=== PATIENT | male | born 2000 | race Caucasian/White ===

== ENCOUNTER 2021-10-12 12:25 | Emergency (ER) | payer MEDICARE, MEDICAID, SELFPAY ==
[2021-10-12 12:34] VITALS: BP 135/76; PULSE 89; RESP 20; TEMP 36.4; O2SAT 98
--- NOTE | 2021-10-12 12:54 | ED.EAR ---
HPI - Ear Problem General Chief complaint: Ear Stated complaint: ear pain Time Seen by Provider: 10/12/21 12:45 Source: patient, family and RN notes reviewed Mode of arrival: ambulatory Limitations: no limitations History of Present Illness HPI Narrative: Grandmother presents with patient today complaining of right ear pain x1 week with decreased hearing. Denies drainage, cough, congestion or rhinorrhea, sore throat. He currently rates his pain 10/10 and has been taking Tylenol with mild relief. No recent antibiotic use. MD Complaint: ear pain Related Data Home Medications Medication Instructions Recorded Confirmed buspirone 15 mg PO TID 11/02/19 10/12/21 carbamazepine 300 mg PO TID 11/02/19 10/12/21 clonazepam 0.5 mg PO HS 11/02/19 10/12/21 divalproex 250 mg PO Q12H 11/02/19 10/12/21 omeprazole 20 mg PO DAILY 11/02/19 10/12/21 quetiapine 400 mg PO BID 11/02/19 10/12/21 trazodone 200 mg PO HS 11/02/19 10/12/21 Allergies Allergy/AdvReac Type Severity Reaction Status Date / Time No Known Allergies Allergy Verified 10/12/21 12:52 Review of Systems Review of Systems: CONSTITUTIONAL: Denies body aches, fever, chills, or sweats. EYES: Denies visual changes, redness, or discharge. ENT: Denies rhinorrhea, congestion, sore throat. + Right ear pain with decreased hearing CARDIOVASCULAR: Denies chest pain, palpitations, or edema. RESPIRATORY: Denies cough or dyspnea. GASTROINTESTINAL: Denies abdominal pain, nausea, vomiting, or diarrhea. GENITOURINARY: Denies dysuria or hematuria. SKIN: Denies rash, itching, or wounds. MUSCULOSKELETAL: Denies back pain, joint pain, or myalgia. NEUROLOGIC: Denies headache, numbness, tingling, or weakness. PSYCH: Denies depression or anxiety. PMFSH Comments At time of signature, I have reviewed and agree with nursing past medical, surgical, social and family history unless otherwise noted. Please see nursing chart for further information. There is no relevant family history pertinent to the presenting complaint Exam Narrative: GENERAL: Well-appearing, well-nourished, and in no acute distress. HEAD: Normocephalic, atraumatic. EYES: EOMI. No redness or drainage. Conjunctivae normal. ENT: Mucous membranes pink and moist. Nares clear. No rhinorrhea. Left TM normal. Right TM erythematous and bulging with purulent material. Throat normal. Uvula midline. NECK: Normal AROM. Supple. No lymphadenopathy. CHEST: No respiratory distress. EXTREMITIES: Normal range of motion. No edema. SKIN: Warm, dry, no rash. Capillary refill normal. Normal skin turgor. NEURO: No focal deficits. Alert and oriented x3. Gait steady. PSYCH: Normal affect. No signs of depression or anxiety. Course Vital Signs Vital signs: Vital Signs Temperature 97.6 F 10/12/21 12:34 Pulse Rate 89 10/12/21 12:34 Respiratory Rate 20 10/12/21 12:34 Blood Pressure 135/76 10/12/21 12:34 Pulse Oximetry 98 10/12/21 12:34 Temperature 97.6 F 10/12/21 12:34 Pulse Rate 89 10/12/21 12:34 Respiratory Rate 20 10/12/21 12:34 Blood Pressure 135/76 10/12/21 12:34 Pulse Oximetry 98 10/12/21 12:34 Reviewed. Pt has been instructed to follow up with his PCP regarding his elevated blood pressure today. Medical Decision Making Differential Diagnosis Differential Diagnosis: Otitis media, otitis externa, ruptured TM, serous otitis, eustachian tube dysfunction, cerumen impaction Vital Signs Vital Signs: Vital Signs Temperature 97.6 F 10/12/21 12:34 Pulse Rate 89 10/12/21 12:34 Respiratory Rate 20 10/12/21 12:34 Blood Pressure 135/76 10/12/21 12:34 Pulse Oximetry 98 10/12/21 12:34 Temperature 97.6 F 10/12/21 12:34 Pulse Rate 89 10/12/21 12:34 Respiratory Rate 20 10/12/21 12:34 Blood Pressure 135/76 10/12/21 12:34 Pulse Oximetry 98 10/12/21 12:34 Critical Care Time Critical Care Time Critical Care Time: No Discharge Plan Discharge Clinical Impression:
== END 2021-10-12 13:05 | disposition home or self-care (01) ==
PROVIDERS: Emergency Provider Nurse Practitioner; PCP Internal Medicine
DX: H66.001 Acute suppurative otitis media without spontaneous rupture of ear drum, right ear (principal); G40.909 Epilepsy, unspecified, not intractable, without status epilepticus; K21.9 Gastro-esophageal reflux disease without esophagitis; E11.9 Type 2 diabetes mellitus without complications; F41.9 Anxiety disorder, unspecified; F31.9 Bipolar disorder, unspecified
CPT/HCPCS: 99213; G0463

== ENCOUNTER 2023-03-29 15:00 | Emergency (ER) | payer MEDICARE, MEDICAID, SELFPAY ==
--- NOTE | 2023-03-29 15:02 | ED.URI ---
HPI - URI/Sore Throat General Chief Complaint: Upper Respiratory Infection Stated Complaint: Cold Symptoms Time Seen by Provider: 03/29/23 15:02 Source: patient and RN notes reviewed History of Present Illness HPI Narrative: Patient is a 22-year-old male who presents to urgent care with complaints of postnasal drainage, cough and cold-like symptoms. Denies any fever, nausea or vomiting. Patient has been taking DayQuil and NyQuil. No other acute complaints. No acute distress noted. Patient and mother aware of the plan of care. Some parts of this dictation were generated by voice recognition software and may contain typographical and/or grammatical inaccuracies. Related Data Home Medications Medication Instructions Recorded Confirmed buspirone 15 mg tablet 15 mg PO TID 11/02/19 03/29/23 clonazepam 0.5 mg tablet 0.5 mg PO HS 11/02/19 03/29/23 divalproex 250 mg tablet,delayed 500 mg PO Q12H 11/02/19 03/29/23 release omeprazole 20 mg capsule,delayed 20 mg PO DAILY 11/02/19 03/29/23 release trazodone 100 mg tablet 200 mg PO HS 11/02/19 03/29/23 aripiprazole 30 mg tablet 30 mg PO DAILY 03/29/23 03/29/23 atorvastatin 40 mg tablet 40 mg PO DAILY 03/29/23 03/29/23 clonidine HCl 0.1 mg tablet 1 mg PO TID 03/29/23 03/29/23 empagliflozin 10 mg tablet 10 mg PO DAILY 03/29/23 03/29/23 (Jardiance) gabapentin 300 mg capsule 300 mg PO TID 03/29/23 03/29/23 hydroxyzine HCl 25 mg tablet 25 mg PO TID 03/29/23 03/29/23 levothyroxine 25 mcg tablet 25 mcg PO DAILY 03/29/23 03/29/23 metformin 1,000 mg tablet 1,000 mg PO BID 03/29/23 03/29/23 Allergies Allergy/AdvReac Type Severity Reaction Status Date / Time No Known Allergies Allergy Verified 03/29/23 15:10 Review of Systems Review of Systems: CONSTITUTIONAL: Denies fever, chills, or sweats. EYES: Denies visual changes, redness, or discharge. ENT: Reports of drainage, rhinorrhea, congestion CARDIOVASCULAR: Denies chest pain, palpitations, or edema. RESPIRATORY: Reports of productive cough GASTROINTESTINAL: Denies abdominal pain, nausea, vomiting, or diarrhea. GENITOURINARY: Denies dysuria or hematuria. SKIN: Denies rash or itching. MUSCULOSKELETAL: Denies back pain, joint pain, or myalgia. NEUROLOGIC: Denies headache, numbness, or weakness. All other systems reviewed are negative, except as documented in HPI. PMFSH Comments At the time of my signature, I reviewed and agree with the nursing past medical, surgical, social, and family history. There is no relevant family history pertinent to the patient complaint. Exam Narrative: GENERAL: This is a well-nourished, well-developed patient, in no apparent distress. HEAD: normocephalic, atraumatic. EYES: PERRL. Sclera clear/white. Vision is grossly intact. EARS: External ears normal, auditory canals clear and without drainage, mild bilateral effusions. TMs normal without perforation. Hearing grossly intact. NOSE: External nose normal with no obvious nasal discharge, nares without redness, no rhinorrhea. THROAT: Mucous membranes moist, posterior pharynx clear. Moderate postnasal drainage NECK: Neck supple, non-tender without lymphadenopathy RESPIRATORY: Clear to auscultation. Breath sounds equal bilaterally. No wheezes, rales, or rhonchi. SKIN: warm, intact with no suspicious lesions or rash, good texture and turgor. NEURO: awake, alert, and oriented to person, place and time. There were no obvious focal neurologic abnormalities. EXTREMITIES: No clubbing, cyanosis, or edema. Course Course Level of Care: Express Care Visit Vital Signs Vital signs: Vital Signs Temperature 98.6 F 03/29/23 15:05 Pulse Rate 86 03/29/23 15:05 Respiratory Rate 16 03/29/23 15:05 Blood Pressure 147/90 H 03/29/23 15:05 Pulse Oximetry 98 03/29/23 15:05 Oxygen Delivery Room Air 03/29/23 15:05 Temperature 98.6 F 03/29/23 15:05 Pulse Rate 86 03/29/23 15:05 Respiratory Rate 16 03/29/23 15:05 Blood Pressure
[2023-03-29 15:05] VITALS: BP 147/90; PULSE 86; RESP 16; TEMP 37; O2SAT 98
== END 2023-03-29 15:42 | disposition home or self-care (01) ==
PROVIDERS: Emergency Provider Nurse Practitioner Family; PCP Internal Medicine
DX: J00 Acute nasopharyngitis [common cold] (principal); Z79.84 Long term (current) use of oral hypoglycemic drugs
CPT/HCPCS: 99211; G0463

== ENCOUNTER 2023-07-22 17:21 | Emergency (ER) | payer MEDICARE, MEDICAID, SELFPAY ==
[2023-07-22 17:26] VITALS: BP 131/79; PULSE 68; RESP 20; TEMP 36.8; O2SAT 94
--- NOTE | 2023-07-22 17:48 | ED.EAR ---
HPI - Ear Problem General Chief complaint: Ear Stated complaint: Left Ear Pain Source: patient and RN notes reviewed History of Present Illness HPI Narrative: 23 yo M presents to urgent care with complaints of left ear pain x 2 days. Pt states it has been intermittently popping for the last couple days too. Pt denies any fevers, chills, congestion, or sore throat. Related Data Home Medications Medication Instructions Recorded Confirmed buspirone 15 mg tablet 15 mg PO TID 11/02/19 07/22/23 clonazepam 0.5 mg tablet 0.5 mg PO HS 11/02/19 07/22/23 divalproex 250 mg tablet,delayed 500 mg PO Q12H 11/02/19 07/22/23 release omeprazole 20 mg capsule,delayed 20 mg PO DAILY 11/02/19 07/22/23 release trazodone 100 mg tablet 200 mg PO HS 11/02/19 07/22/23 aripiprazole 30 mg tablet 30 mg PO DAILY 03/29/23 07/22/23 atorvastatin 40 mg tablet 40 mg PO DAILY 03/29/23 07/22/23 clonidine HCl 0.1 mg tablet 1 mg PO TID 03/29/23 07/22/23 empagliflozin 10 mg tablet 10 mg PO DAILY 03/29/23 07/22/23 (Jardiance) gabapentin 300 mg capsule 300 mg PO TID 03/29/23 07/22/23 hydroxyzine HCl 25 mg tablet 25 mg PO TID 03/29/23 07/22/23 levothyroxine 25 mcg tablet 25 mcg PO DAILY 03/29/23 07/22/23 metformin 1,000 mg tablet 1,000 mg PO BID 03/29/23 07/22/23 Allergies Allergy/AdvReac Type Severity Reaction Status Date / Time No Known Allergies Allergy Verified 03/29/23 15:10 Review of Systems Review of Systems: CONSTITUTIONAL: Denies fever, chills, or sweats. EYES: Denies visual changes, redness, or discharge. ENT: Left-sided ear pain CARDIOVASCULAR: Denies chest pain, palpitations, or edema. RESPIRATORY: Denies cough or dyspnea. GASTROINTESTINAL: Denies abdominal pain, nausea, vomiting, or diarrhea. GENITOURINARY: Denies dysuria or hematuria. SKIN: Denies rash or itching. MUSCULOSKELETAL: Denies back pain, joint pain, or myalgia. NEUROLOGIC: Denies headache, numbness, or weakness. Pertinent positives per HPI. PMFSH Comments At the time of my signature, I reviewed and agree with the nursing past medical, surgical, social, and family history. There is no relevant family history pertinent to the patient complaint. Exam Narrative: GENERAL: This is a well-nourished, well-developed patient, in no apparent distress. HEAD: normocephalic, atraumatic. EYES: Sclera clear/white. Vision is grossly intact. EARS: External ears normal, auditory canals clear and without drainage. Hearing grossly intact. Left TM erythremic and bulging. NOSE: External nose normal with no obvious nasal discharge, nares without redness, no rhinorrhea. THROAT: Mucous membranes moist, posterior pharynx clear. NECK: Neck supple, non-tender without lymphadenopathy, masses or thyromegaly. CARDIOVASCULAR: Regular rate and rhythm without murmurs, gallops, or rubs. RESPIRATORY: Clear to auscultation. Breath sounds equal bilaterally. No wheezes, rales, or rhonchi. SKIN: warm, intact with no suspicious lesions or rash, good texture and turgor. NEURO: awake, alert, and oriented to person, place and time. There were no obvious focal neurologic abnormalities. Course Course Level of Care: Express Care Visit Vital Signs Vital signs: Vital Signs Temperature 98.2 F 07/22/23 17:26 Pulse Rate 68 07/22/23 17:26 Respiratory Rate 20 07/22/23 17:26 Blood Pressure 131/79 07/22/23 17:26 Pulse Oximetry 94 07/22/23 17:26 Oxygen Delivery Room Air 07/22/23 17:26 Temperature 98.2 F 07/22/23 17:26 Pulse Rate 68 07/22/23 17:26 Respiratory Rate 20 07/22/23 17:26 Blood Pressure 131/79 07/22/23 17:26 Pulse Oximetry 94 07/22/23 17:26 Oxygen Delivery Room Air 07/22/23 17:26 reviewed Medical Decision Making MDM Narrative Medical decision making narrative: Take antibiotics as directed. May given ibuprofen and/or Tylenol as needed for pain and/or fever. Follow up with primary care provider in 7-10 days to have ear rechecked. Differentia
== END 2023-07-22 17:57 | disposition home or self-care (01) ==
PROVIDERS: Emergency Provider Nurse Practitioner Family; PCP Internal Medicine
DX: H66.92 Otitis media, unspecified, left ear (principal); G40.909 Epilepsy, unspecified, not intractable, without status epilepticus; I10 Essential (primary) hypertension; K21.9 Gastro-esophageal reflux disease without esophagitis; E11.9 Type 2 diabetes mellitus without complications; E03.9 Hypothyroidism, unspecified; F41.9 Anxiety disorder, unspecified; F32.A Depression, unspecified
CPT/HCPCS: 99213; G0463

== ENCOUNTER 2024-07-21 16:41 | Emergency (ER) | payer MEDICARE, MEDICAID, SELFPAY ==
[2024-07-21 16:50] VITALS: BP 147/95; PULSE 103; RESP 20; TEMP 36.8; O2SAT 99
--- NOTE | 2024-07-21 17:21 | ED.URI ---
HPI - URI/Sore Throat General Chief Complaint: Upper Respiratory Infection Stated Complaint: Sore Throat/Cough History of Present Illness HPI Narrative: patient is a 24-year-old male, presents to [facility] with 24 hour history of URI symptoms, including scratchy itchy throat, nasal congestion and a slight cough. He denies associated fevers. He has no known sick contacts or COVID-19 exposures. He is not taking any [id number] medications. He denies any additional associated symptoms or modifying factors. Related Data Home Medications Medication Instructions Recorded Confirmed divalproex 250 mg tablet,delayed 500 mg PO Q12H 11/02/19 07/21/24 release omeprazole 20 mg capsule,delayed 20 mg PO DAILY 11/02/19 07/21/24 release trazodone 100 mg tablet 200 mg PO HS 11/02/19 07/21/24 aripiprazole 30 mg tablet 30 mg PO DAILY 03/29/23 07/21/24 atorvastatin 40 mg tablet 40 mg PO DAILY 03/29/23 07/21/24 clonidine HCl 0.1 mg tablet 1 mg PO TID 03/29/23 07/21/24 empagliflozin 10 mg tablet 10 mg PO DAILY 03/29/23 07/21/24 (Jardiance) gabapentin 300 mg capsule 300 mg PO TID 03/29/23 07/21/24 hydroxyzine HCl 25 mg tablet 25 mg PO TID 03/29/23 07/21/24 levothyroxine 25 mcg tablet 25 mcg PO DAILY 03/29/23 07/21/24 metformin 1,000 mg tablet 1,000 mg PO BID 03/29/23 07/21/24 buspirone 10 mg tablet 20 mg PO TID 07/21/24 07/21/24 Allergies Allergy/AdvReac Type Severity Reaction Status Date / Time No Known Allergies Allergy Verified 07/21/24 17:01 Review of Systems ENT: Comments: Refer HPI Respiratory: Comments: refer to HPI Exam Const: General: healthy appearing and no acute distress Nutritional Appearance: well nourished Orientation/consciousness: patient oriented x3 HENMT: Head: normal to inspection Ears: external ears normal and TM's normal bilaterally Face/Nose/Sinus: Normal external nose present and Normal nares present Mouth: Yes Normal oral and palatal mucosa present (. Mucosa is mildly injected, otherwise unremarkable) and Yes lip normal Throat: posterior oropharynx normal and uvula midline Eyes: Conjunctivae: conjunctivae normal Pupils: Equal, round and reactive pupils present EOM: EOMs intact bilaterally Neck: Neck: normal visual inspection, no lymphadenopathy and no meningeal signs Resp: Effort & Inspection: normal respiratory effort Auscultation: clear to auscultation bilaterally Cardio: Rate: regular rate Rhythm: regular rhythm Back/Spine/Pelvis: Back: no CVA tenderness Skin: General skin exam: normal color Rashes: no rashes Wounds: no wounds Neuro: General: patient oriented x3, moves all extremities, no meningeal signs, no focal motor deficits and CN's II-XI intact bilaterally Cranial nerves: Yes Nystagmus not present Speech: normal speech Gait exam (Neuro): Normal gait present Extrem: General: normal to inspection, no clubbing, cyanosis or edema and no pedal edema Psych: Mental Status: mental status grossly normal Course Course Emergency Course: strep, COVID-19 and influenza are negative. Patient's examination and symptoms are consistent with a mild viral URI. Will treat with Flonase, Zyrtec and cough medication. Follow up PCP in 3-5 days if symptoms are not Improving. Level of Care: Express Care Visit ([id number]) Vital Signs Vital signs: Vital Signs Temperature 36.8 C 07/21/24 16:50 Pulse Rate 103 H 07/21/24 16:50 Respiratory Rate 20 07/21/24 16:50 Blood Pressure 147/95 H 07/21/24 16:50 Pulse Oximetry 99 07/21/24 16:50 Oxygen Delivery Room Air 07/21/24 16:50 Temperature 36.8 C 07/21/24 16:50 Pulse Rate 103 H 07/21/24 16:50 Respiratory Rate 20 07/21/24 16:50 Blood Pressure 147/95 H 07/21/24 16:50 Pulse Oximetry 99 07/21/24 16:50 Oxygen Delivery Room Air 07/21/24 16:50 MDM - URI/Sore Throat MDM Narrative Medical decision making narrative: promethazine DM, Flonase and Zyrtec Differential Diagnosis Differentia
[2024-07-22 11:35] LABS: EDINFLUASCREEN Negative; EDINFLUBSCREEN Negative; EDSTREPNEGPOS1 Negative
== END 2024-07-21 17:30 | disposition home or self-care (01) ==
PROVIDERS: Emergency Provider Nurse Practitioner Family; PCP Internal Medicine
DX: J06.9 Acute upper respiratory infection, unspecified (principal); Z20.822 Contact with and (suspected) exposure to COVID-19
CPT/HCPCS: 87081; 87426; 87804; 87880; 99213; G0463

== ENCOUNTER 2024-10-31 09:24 | Emergency (ER) | payer MEDICARE, MEDICAID, SELFPAY ==
--- NOTE | ~2024-10-31 | XR_ITS ---
EXAMINATION: XR chest 2V DATE: 10/31/2024 10:10 INDICATION: Cough. TECHNIQUE: Frontal and lateral views of the chest were obtained. COMPARISON: Chest 2 views 11/02/2019 FINDINGS: There is no pneumonia, pleural effusion, or pneumothorax. The heart size is normal. IMPRESSION: 1. No acute cardiopulmonary disease. Reviewed, dictated and finalized at location A. [facility]
[2024-10-31 09:29] VITALS: BP 125/73; PULSE 90; RESP 20; TEMP 37.6; O2SAT 98
[2024-10-31 10:03] LABS: EDCOVIDSCREEN Negative (Negative); EDINFLUASCREEN Negative (Negative); EDINFLUBSCREEN Negative (Negative); EDSTREPNEGPOS1 Negative (Negative)
--- NOTE | 2024-10-31 10:08 | ED_ITS ---
HPI - General Adult General Chief complaint: Upper Respiratory Infection Stated complaint: Cough/Chills Source: patient Mode of arrival: ambulatory Limitations: no limitations History of Present Illness HPI narrative: Pt presents for evaluation of sick symptoms for the last week. Symptoms include sinus congestion, clear rhinorrhea, productive brown sputum, and sore throat. Mother states he has also had a fever. No chills, nausea, vomiting, diarrhea, SOB. His mother recently had a viral illness. He tried nyquil and dayquil. His symptoms persist. He does not smoke. Related Data Home Medications Medication Instructions Recorded Confirmed divalproex 250 mg tablet,delayed 500 mg PO Q12H 11/02/19 10/31/24 release omeprazole 20 mg capsule,delayed 20 mg PO DAILY 11/02/19 10/31/24 release trazodone 100 mg tablet 200 mg PO HS 11/02/19 10/31/24 aripiprazole 30 mg tablet 30 mg PO DAILY 03/29/23 10/31/24 atorvastatin 40 mg tablet 40 mg PO DAILY 03/29/23 10/31/24 clonidine HCl 0.1 mg tablet 1 mg PO TID 03/29/23 10/31/24 empagliflozin 10 mg tablet 10 mg PO DAILY 03/29/23 10/31/24 (Jardiance) gabapentin 300 mg capsule 300 mg PO TID 03/29/23 10/31/24 hydroxyzine HCl 25 mg tablet 25 mg PO TID PRN Anxiety 03/29/23 10/31/24 levothyroxine 25 mcg tablet 25 mcg PO DAILY 03/29/23 10/31/24 metformin 1,000 mg tablet 1,000 mg PO BID 03/29/23 10/31/24 buspirone 10 mg tablet 20 mg PO TID 07/21/24 10/31/24 Allergies Allergy/AdvReac Type Severity Reaction Status Date / Time No Known Allergies Allergy Verified 10/31/24 09:59 Review of Systems Review of Systems: CONSTITUTIONAL: Reports fever. Denies chills or sweats. EYES: Denies visual changes, redness, or discharge. ENT: Reports sinus congestion, clear rhinorrhea and sore throat. Denies otalgia CARDIOVASCULAR: Denies chest pain, palpitations, or edema. RESPIRATORY: Reports productive cough of brown sputum. Denies SOB GASTROINTESTINAL: Denies abdominal pain, nausea, vomiting, or diarrhea. GENITOURINARY: Denies dysuria or hematuria. SKIN: Denies rash or itching. MUSCULOSKELETAL: Denies back pain, joint pain, or myalgia. NEUROLOGIC: Denies headache, numbness, dizziness, or weakness. PSYCHIATRIC: Denies anxiety or depression. [facility] Past Medical History Medical History Anxiety Depression Diabetes Surgical History Surgical History No pertinent past surgical history Family History Family History Mother Family history non-contributory Social History Social History Smoking status: Never smoker Substance use: never Living arrangements: with family Gender identity (if verbalized by the patient): Male Spiritual care concerns: No Exam Narrative: GENERAL: Well-appearing, well-nourished, and in no acute distress. HEAD: Normocephalic, atraumatic. EYES: PERRLA and EOMI. ENT: Nares clear, no rhinorrhea or epistaxis. Mucous membranes moist. Oropharynx without tonsillar hypertrophy exudate or other lesions. Left TM is erythematous and bulging NECK: Supple. No adenopathy or masses. No carotid bruits or JVD CHEST: Clear to auscultation. No respiratory distress. No wheezes rales or rhonchi HEART: Regular rate and rhythm. No murmur heard. Normal peripheral pulses. ABDOMEN: Soft, nontender, nondistended, normal active bowel sounds. EXTREMITIES: Normal range of motion. No edema. SKIN: Warm, dry, no rash. NEURO: No focal deficits. Alert and oriented x3. PSYCH: Normal mood and affect. Course Course Emergency Course: This is a 24 yr old male who presented for respiratory symptoms. COVID, in fluenza, strep were negative. Chest x-ray normal. Exam is consistent with acute viral syndrome. Increase hydration. Will dc with tessalon. Follow up with primary provider. Go to the ER for worsening symptoms. Pt and mother in agreement with plan of care. Level of Care: Express Care Visit Vital Signs Vital signs: Vital Signs Temperature 37.6 C 10/31/24 09:29 Pulse Rate 90 10/31/24 09:29 Respiratory Rate 20 10/31/24 09:29 Blood Pressure 125/73 10/31/24 09:29 Pulse Oximetry 98 10/31/24 09:29 Oxygen Delivery Autopap 10/31/24 09:29 Temperature 37.6 C 10/31/24 09:29 Pulse Rate 90 10/31/24 09:29 Respiratory Rate 20 10/31/24 09:29 Blood Pressure 125/73 10/31/24 09:29 Pulse Oximetry 98 10/31/24 09:29 Oxygen Delivery Autopap 10/31/24 09:29 Medical Decision Making Vital Signs Vital Signs: Vital Signs Temperature 37.6 C 10/31/24 09:29 Pulse Rate 90 10/31/24 09:29 Respiratory Rate 20 10/31/24 09:29 Blood Pressure 125/73 10/31/24 09:29 Pulse Oximetry 98 10/31/24 09:29 Oxygen Delivery Autopap 10/31/24 09:29 Temperature 37.6 C 10/31/24 09:29 Pulse Rate 90 10/31/24 09:29 Respiratory Rate 20 10/31/24 09:29 Blood Pressure 125/73 10/31/24 09:29 Pulse Oximetry 98 10/31/24 09:29 Oxygen Delivery Autopap 10/31/24 09:29 Lab Data Labs: Lab Results 10/31/24 Range/Units 10:00 POC Influenza A Ag Negative (Negative) POC Influenza B Ag Negative (Negative) POC SARS CoV-2 Ag Negative (Negative) POC Grp A Strep Screen Negative (Negative) Imaging Data Radiologist's impression: EXAMINATION: XR chest 2V DATE: 10/31/2024 10:10 INDICATION: Cough. TECHNIQUE: Frontal and lateral views of the chest were obtained. COMPARISON: Chest 2 views 11/02/2019 FINDINGS: There is no pneumonia, pleural effusion, or pneumothorax. The heart size is normal. IMPRESSION: 1. No acute cardiopulmonary disease. Discharge Plan Discharge Clinical Impression: Acute viral syndrome Patient Disposition: Home, Self-Care Condition: Stable Instructions: Antibiotic Form, Viral Syndrome (ED) Patient Language: Citizen Of [place] Prescriptions: New benzonatate 200 mg capsule 200 mg PO TID PRN (Reason: cough) Qty: 30 0RF No Action buspirone 10 mg tablet 20 mg PO TID fluticasone propionate [Flonase Allergy Relief] 50 mcg/actuation spray,suspension 2 spray intranasal DAILY Qty: 16 0RF Rx Instructions: administer into each nostril divalproex 250 mg Tablet,Delayed Release (Dr/Ec) 500 mg PO Q12H trazodone 100 mg Tablet 200 mg PO HS omeprazole 20 mg Capsule,Delayed Release(Dr/Ec) 20 mg PO DAILY atorvastatin 40 mg tablet 40 mg PO DAILY clonidine HCl 0.1 mg tablet 1 mg PO TID levothyroxine 25 mcg tablet 25 mcg PO DAILY gabapentin 300 mg capsule 300 mg PO TID hydroxyzine HCl 25 mg tablet 25 mg PO TID PRN (Reason: Anxiety) aripiprazole 30 mg tablet 30 mg PO DAILY Jardiance 10 mg tablet 10 mg PO DAILY metformin 1,000 mg tablet 1,000 mg PO BID Follow-up/Referrals: Navi Nguyen DO [Physician] - Time of Disposition: 10:35
== END 2024-10-31 10:40 | disposition home or self-care (01) ==
PROVIDERS: Emergency Provider Nurse Practitioner
DX: B34.9 Viral infection, unspecified (principal); Z20.822 Contact with and (suspected) exposure to COVID-19; E11.9 Type 2 diabetes mellitus without complications; Z79.84 Long term (current) use of oral hypoglycemic drugs; F41.9 Anxiety disorder, unspecified; F32.A Depression, unspecified
CPT/HCPCS: 71046; 87081; 87426; 87804; 87880; 99213; G0463

== ENCOUNTER 2025-01-05 17:19 | Emergency (ER) | payer MEDICARE, MEDICAID, SELFPAY ==
--- NOTE | ~2025-01-05 | XR_ITS ---
HISTORY: INVERSION INJURY,LATERAL PAIN COMPARISON: None TECHNIQUE: 3 views of the left ankle were performed FINDINGS: No acute fracture or dislocation. Moderate lateral soft tissue swelling. The ankle mortise is preserved. Bone mineralization is age-appropriate. IMPRESSION: Soft tissue swelling without acute fracture. Reviewed, dictated and finalized at location A. ERY TECHNICIAN
--- OUTSIDE RECORDS SUMMARY | 2025-01-05 17:22 | XMS_ITS | Clinical Summary ---
Author Organization [facility] Address [address] [place] [address] Care Team Providers Care Training Professional Name Role Phone Yoselyn Oseguera MD Primary Care Provider Source Comments [facility],non-owned Affiliates and Associated Physician Practices is amultiple site organization consisting of ambulatory clinics and hospital sitesin [place], [place], [place] and [place]. This disclosure is being madepursuant to the Care Everywhere program and may not contain all information available regarding this patient. Last updated 18.[facility] Allergies No known active allergies Medications * Be aware that medications may not be up to date on this document. Alwaysverify current medications with the patient. Medication Sig Dispensed Refills Start Date End Date Status polyethylene glycol 3350 (MIRALAX) packet Use 1 pkt daily with 8 oz water. If you do not have stools for one day, then double the dose and if you do not have stools for 2 days or more call GI office 30 Packet 3 09/16/2014 Active VYVANSE 70 MG capsule Take 70 mg by mouth every morning 0 04/18/2016 Active busPIRone (BUSPAR) 15 MG tablet Take 15 mg by mouth 2 times daily 1 05/14/2016 Active QUEtiapine (SEROQUEL) 300 MG tablet Take 600 mg by mouth once daily 0 05/01/2016 Active omeprazole EC (PRILOSEC OTC) 20 MG tablet Take 20 mg by mouth once daily 3 05/07/2016 Active traZODone (DESYREL) 50 MG tablet TAKE 1.5TABS BY MOUTH AT BEDTIME 0 02/26/[address] (DEPAKOTE) 250 MG tablet TAKE 1 TABLET BY MOUTH TWICE DAILY 60 tablet 02/10/2019 Active Active Problems Patient Care Coordination No te Formatting of this note migh t be different from the original. Mom Olegario) [phone]. Problem Noted Date Diagnosed Date Convulsions 05/21/2016 Overview (08/21/2016): Eugene has had 2 episodes suspicious for seizures in a 1 weeks span of time. No history of trauma or illness associated but did start a new medication, mirtazapine, just before the first seizure. No family history of seizures. Age of onset: 15 yo-first 03/27 ; second 04/04/2016 Seizure type(s): Partial onset 1st- began with grabbing at things in the air, then lost balance, unresponsive, stare off and had some jerking/drooping of his face. Duration: 5 min 2nd- dazed off, not responsive but would squeeze dad's hand on command. No jerking. Duration: 3 min No post ital period reported. Current seizure frequency: 2 single seizures by ~1 week. None since Epilepsy syndrome: Etiology: EEG Information at [facility]: EEG is abnormal with evidence of sharply apiculate activity with localization to the left temporal. This suggests underlying low threshold for seizure activity. Neuroimaging: None Other med history: developmental disorder, ADHD, mood disorder, LD Medication: Started Depakote 250 mg bid. (Previously on Depakote for mood stabilization. It was stopped about 6-8 months before seizures by psychiatrist and Seroquel started). Previous medications: none Assessment & Plan (08/21/2016 10:12 AM CDT): Partial onset seizures Started Depakote and has remained seizure free. Plan: To continue Depakote 250 mg bid. Will obtain level with CBC, AST/ALT as trough this weekend. Should consider obtaining MRI to complete workup at next follow up Assessment & Plan (05/30/2016 2:51 PM CDT): Seizure precautions and first aide provided and discussed today. Will call family with result of EEG and discuss medication treatment vs no treatment at that time. 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 Plan: -- Consulted with Dr Peterson from renal team. Her impression is that this is not serious enough to warrant intervention at this time. Continue to encourage PO intake and monitor clinically. Fecal impaction 06/29/2013 Overview (10/02/2015): 13 y/o male with a long history of constipation issues including multiple stool impactions treated multiple times with laxatives chronically and acute increases regime for bowel cleanse. He presented to the GI outpatient clinic for follow up of outpatient Magnesium Citrate treatment for impaction. Dr. Lovelace determined failure of outpatient treatment for constipation and pt was admitted to clinical medicine/GI for treatment of stool impaction. -Admit to general medicine/GI -maintenance IVF -clear liquids diet -NG tube placement -Golytely 130ml/hr 4L total through NG tube -Fleets enema -TTG, IgA, BMP, TSH -reassess for stools in 4 hours after enema and Golytely. Assessment & Plan (09/15/2014 3:00 PM CDT): Assessment: 14 year old with chronic constipation presenting with fecal impaction. Continues on NG GoLytely with good results thus far. Plan: Continue GoLytely 90 ml/hr via NG tube Discontinue IVF and encourage PO intake Clear liquid diet Continue home meds Tylenol 500 mg PO q6 hours prn IV Zofran 4 mg q 6 hour prn Monitor UOP. Assessment & Plan (09/14/2014 4:39 PM CDT): Assessment: 14 year old with chronic constipation presenting with fecal impaction. Patient has psychiatric history including depression and anxiety which and is on Addrell, trazadone, Vyanse, Abilify and Depakote and all of these can cause constipation.. Now passing brown liquid stools. Plan: Continue GoLytely 90 ml/hr via NG tube Continue IVF 1/2 maintenance dose of D5 + 0.2% NS Clear liquid diet KUB in am BMP in the morning. Continue home meds Tylenol 500 mg PO q6 hours prn IV Zofran 4 mg q 6 hour prn Monitor UOP. Assessment & Plan (09/13/2014 2:20 PM CDT): Assessment: 14 year old with chronic constipation presenting with fecal impaction. Patient has psychiatric history including depression and anxiety which and is on Addrell, trazadone, Vyanse, Abilify and Depakote and all of these can cause constipation.. Per parents history, he does not seem to have ever had much of a bowel regimen and he will benefit from a bowel cleanout. Plan: Continue GoLytely 90 ml/hr via NG tube Continue IVF 1/2 maintenance dose CLD KUB in am Another BMP in the morning. Continue home meds Tylenol 500 mg PO q6 hours prn IV Zofran 4 mg q 6 hour prn Monitor UOP. Assessment & Plan (09/10/2014 8:27 PM CDT): Assessment: 14 yo with chronic constipation now admitted for fecal impaction and bowel cleanout. Patient has psychiatric history including depression and anxiety which may be related in part to his constipation and needing to wear pull ups. This patient would benefit from an aggressive bowel regimen after getting cleaned out. Per parents history, he does not seem to have ever had much of a bowel regimen. Also on multiple psychiatric medications which are constipating. Plan: Admit to GI service Vitals q8h NPO, sips with meds okay Go Lytely at 105 ml/hr via NG tube D5 1/2 NS at 105 ml/hr Abdominal xray now Zofran 4 mg q6h prn Continue home medications - adderall, abilify, depakote, vyvanse, trazodone Assessment & Plan (06/30/2013 7:23 AM CDT): Assessment: 13 y/o male with a long history of chronic constipation still admitted for treatment of stool impaction/constipation. He is not complaining of any abdominal pain at this time and he is still not had a satisfactory stool yet. He still has a lot of stool present on physical exam in his LLQ. When palpating there are many bowel movements and peristalsis is appreciable. He still needs to be cleaned out a little more than at time of exam. BMP and TSH are normal, TTG and IgA panels are still pending. Parents and nursing state the stool is loose, which maybe a little more stool bypass and large stool is still present in colon. Plan: Continue Golytely via NG tube at 130ml/hr Continue clear liquids Consider further enema for further stool loosening if no satisfactory large stool removal. Family History Medical History Relation Name Comments Bipolar Disorder Father COPD - Chronic Obstructive Pulmonary Disease Father Hypertension Father Type 2 Diabetes Mellitus Maternal Grandmother Depression Mother IBS Mother Relation Name Status Comments Father Maternal Grandmother Mother Social History Tobacco Use Types Packs/Day Years Used Date Smoking Tobacco: Never Smokeless Tobacco: Never Alcohol Use Standard Drinks/Week Comments No 0 (1 standard drink = 0.6 oz pur e alcohol) Sex and Gender Information Value Date Recorded Sex Assigned at Not on file Gender Identity Not on file Sexual Orientation Not on file Last Filed Vital Signs Vital Sign Reading Time Taken Comments Blood Pressure 127/79 05/24/2017 10:07 AM CDT Pulse 79 05/24/2017 10:07 AM CDT Temperature 37.4 C (99.3 F) 05/24/2017 10:07 AM CDT Respiratory Rate 18 05/24/2017 10:07 AM CDT Oxygen Saturation 97% 05/24/2017 10:07 AM CDT Inhaled Oxygen Concentration - - Weight 79 kg (174 lb 2.6 oz) 05/24/2017 10:07 AM CDT Height 172 cm (5' 7.72 ) 03/26/2017 12:56 PM CDT Body Mass Index - - Plan of Treatment Health Maintenance Due Date Last Done Comments HIV SCREENING 2015 HPV VACCINE (1 - Male 3-dose series) 2015 HEPATITIS C SCREENING 06/20/2018 DTAP/TDAP/TD VACCINES (1 - Tdap) 2019 HEPATITIS B VACCINE (1 of 3 - 19+ 3-dose series) 2019 COVID-19 VACCINE (2023-2 5 season) 2024 INFLUENZA VACCINE (#1) 2024 ZOSTER VACCINE (1 of 2) 2050 HIB VACCINE Aged Out No longer eligi ble based on patient's age to complete this topic MENINGOCOCCAL (Group B) VACCINE Aged Out No longer eligible based on patient's age to complete this topic MENINGOCOCCAL VACCINE Aged Out No genna srinivas eligible based on patient's age to complete this topic PNEUMOCOCCAL VACCINE Aged Out No long er eligible based on patient's age to complete this topic Care Teams Training Professional Relationship Specialty Start Date End Date Yoselyn Oseguera MD [address] [facility] [address] [place] [address] PCP - General Pediatrics 02/04/17
--- OUTSIDE RECORDS SUMMARY | 2025-01-05 17:22 | XMS_ITS | Referral Summary ---
Author Organization [facility] Address [address] [place] [address] Care Team Providers Care Purse Seiner Name Role Phone Melinda Lawson NP Unavailable [phone] Baldemar Landry MD Primary Care Provi billy Encounters Date Type Department Care Team Description 12/15/2024 10:30 AM SHERIFF OFFICER Office Visit [facility] at [address] [phone] Baldemar Landry MD Encounter for other administrative examinations (Primary Dx); Developmental delay; Type 2 diabetes mellitus without complication, without long-term current use of insulin (CMS/HCC) ([facility]); Hyperlipidemia associated with type 2 diabetes mellitus (HCC) 11/10/2024 Nurse Triage [facility] Primary [facility] at [address] [place] [phone] Baldemar Landry MD 10/29/2024 4:00 PM SHERIFF OFFICER Office Visit [facility] Primary [facility] at [address] [place] [phone] Baldemar Landry MD Type 2 diabetes mellitus without complication, without long-term current use of insulin (CMS/HCC) (HCC) (Primary Dx); Hyperlipidemia associated with type 2 diabetes mellitus (HCC); Bipolar 1 disorder (HCC); Class 2 severe obesity with serious comorbidity and body mass index (BMI) of 38.0 to 38.9 in adult, unspecified obesity type (HCC); Seizure disorder (CMS/HCC) (HCC); Acquired hypothyroidism from Last 3 Months Allergies Active Allergy Reactions Criticality Noted Date Comments Canagliflozin Vomiting Low 05/24/2020 Vomits 10 minutes after taking medication Medications traZODone (DESYREL) 100 mg tabletIndicatio ns:major depressive disorder Take 2 tablets (200 mg total) by mouth 2 (two) times a day Active divalproex DR (DEPAKOTE) 250 mg EC tabletIndicatio ns:Bipolar Disorder Take 1 tablet (250 mg total) by mouth 2 (two) times a day Takes at 0800 and 1600 Active gabapentin (NEURONTIN) 300 mg capsuleIndicati ons:anger Take 1 capsule (300 mg total) by mouth 3 (three) times a day Takes at 0800, 1200, 1600 Active clonazePAM (KlonoPIN) 0.5 mg tablet Take 1 tablet (0.5 mg total) by mouth daily Takes at noon 0 Active omeprazole (PriLOSEC) 20 mg capsule Take 1 capsule (20 mg total) by mouth daily Active TechLITE Pen Needle 32 gauge x 1/4 needle 0 Active alcohol swabs pads, medicatedIndica tions:New onset type 2 diabetes mellitus (CMS/HCC) ([facility]) Apply 1 each topically 2 (two) times a day 120 each 3 0 Active lancing device with lancets kit Test blood sugar 4 times/day 100 each 11 0 Active Accu-Chek Fastclix Lancet Drum misc TEST QID 0 Active fluticasone propionate (FLONASE) 50 mcg/actuation nasal spray SHAKE LIQUID AND USE 2 SPRAYS IN EACH NOSTRIL DAILY 1 Active ARIPiprazole (ABILIFY) 30 mg tablet Take 0.5 tablets (15 mg total) by mouth 2 (two) times a day 1 Active blood-glucose meter (Reveal Blood Glucose Meter) kit Use blood glucose meter to test blood sugars twice a day. 1 each 1 1 Active metFORMIN (GLUCOPHAGE) 1,000 mg tabletIndicatio ns:New onset type 2 diabetes mellitus (CMS/HCC) ([facility]) TAKE 1 TABLET(1000 MG) BY MOUTH TWICE DAILY WITH MEALS 180 tablet 3 1 Active blood glucose diagnostic (OneTouch Verio test strips) strip USE TO TEST BLOOD SUGAR TWICE DAILY 200 strip 2 Active neomycin-polymy david-HC (CORTISPORIN) 3.5-10,000-1 mg/mL-unit/mL-% otic suspension SHAKE LIQUID AND INSTILL 4 DROPS TO AFFECTED EAR THREE TIMES DAILY FOR 10 DAYS 1 Active busPIRone (BUSPAR) 10 mg tablet 2 Active dulaglutide (Trulicity) 3 mg/0.5 mL pen injector Inject 0.5 mL (3 mg total) under the skin every 7 days 2 mL 5 2 Active empagliflozin (JARDIANCE) 10 mg tabletIndicatio ns:type 2 diabetes mellitus Take 1 tablet (10 mg total) by mouth wood barrel reconditioner before breakfast e11.65 30 tablet 5 2 Active albuterol HFA (PROVENTIL HFA,VENTOLIN HFA,PROAIR HFA) 90 mcg/actuation inhaler INHALE 2 PUFFS BY MOUTH EVERY 4 TO 6 HOURS NEEDED FOR COUGH OR SHORTNESS OF BREATH 4 Active cetirizine (ZyrTEC) 10 mg tablet TAKE 1 TABLET BY MOUTH DAILY NEEDED FOR ALLERGY SYMPTOMS 4 Active hydrOXYzine (ATARAX) 25 mg tablet Take 1 tablet (25 mg total) by mouth 3 (three) times a day 3 Active atorvastatin (LIPITOR) 20 mg tablet Take 1 tablet (20 mg total) by mouth daily 4 Active levothyroxine (SYNTHROID) 50 mcg tablet Take 1 tablet (50 mcg total) by mouth daily 4 Active buPROPion SR (WELLBUTRIN SR) 200 mg 12 hr tablet Take 1 tablet (200 mg total) by mouth 2 (two) times a day Active Rybelsus 7 mg tablet Take 1 tablet (7 mg total) by mouth wood barrel reconditioner before breakfast 30 tablet 5 5 07/02/20 25 Active Rybelsus 7 mg tablet TAKE 1 TABLET BY MOUTH DAILY 30 MINUTES BEFORE FIRST FOOD OR BEVERAGE OR MEDICINE OF THE DAY. START WHEN FINISHED WITH 3 MG TABLET 4 12/31/19 25 Discontinu ed(Reorder ) Active Problems Problem Noted Date Diagnosed Date Encounter for other administrative examinations 12/15/2024 Type 2 diabetes mellitus wit hout complication, without long-term current use of insulin ([facility]) 10/29/2024 Class 2 severe obesity with serious comorbidity and body mass index (BMI) of 38.0 to 38.9 in adult 10/29/2024 Seizure disorder ([facility]) 10/29/2024 Hyperlipidemia associated with type 2 diabetes libertad noriega 09/09/2020 Assessment & Plan (11/29/2021 10:02 AM SHERIFF OFFICER): This is a chronic condition which is controlled, but not at goal. Goal is less than 70. Personally reviewed lipid panel (01/15). Encouraged to eat healthy, include fresh fruits and vegetables daily and avoid eating fried foods more than once per week. Please take medications as prescribed. Personally reviewed (01/15) LDL - 89, currently on atorvastatin 40mg daily. Assessment & Plan (04/05/2021 1:49 PM CDT): This is a chronic condition which is controlled, but not at goal. Goal is less than 70. Personally reviewed lipid panel (01/15). Encouraged to eat healthy, include fresh fruits and vegetables daily and avoid eating fried foods more than once per week. Please take medications as prescribed. Personally reviewed (01/15) LDL - 89, currently on atorvastatin 40mg daily. Assessment & Plan (01/05/2021 3:15 PM SHERIFF OFFICER): This is a chronic condition which is improving, but not at goal. Reviewed labs. Encouraged to eat healthy, include fresh fruits and vegetables daily and avoid eating fried foods more than once per week. Please take medications as prescribed. Increase Atorvastatin from 20mg to 40 mg daily. Take 2 tablets until current prescription is gone and then seed cone picker atorvastatin 40 mg at the pharmacy Labs have decreased from 106 to 89 but, it needs be under 70 for people with diabetes. Encouraged weight loss and exercise. Assessment & Plan (11/03/2020 4:02 PM SHERIFF OFFICER): This is a chronic condition which is improving, but not at goal. Reviewed labs. Encouraged to eat healthy, include fresh fruits and vegetables daily and avoid eating fried foods more than once per week. Please take medications as prescribed. Continue on atorvastatin 20 mg po daily. Cholesterol 217 HDL - 39 LDL- 146 Triglycerides- 183- lipid panel repeated by PCP. Will repeat labs at the first of the year Encouraged weight loss and exercise. Assessment & Plan (09/09/2020 10:10 AM CDT): This is a chronic condition which is improving, but not at goal. Reviewed labs. Encouraged to eat healthy, include fresh fruits and vegetables daily and avoid eating fried foods more than once per week. Please take medications as prescribed. Continue on atorvastatin 20 mg po daily. Cholesterol 217 HDL - 39 LDL- 146 Triglycerides- 183 Will repeat labs at the first of the year Focus on a 6 lb weight loss by next visit. Morbid obesity due to excess calories 05/16/2020 Assessment & Plan (09/09/2020 10:12 AM CDT): This is a chronic condition which is worsening 10lb increase in weight in 6 weeks. Encouraged increase activity. Offer GLP-1 for help with weight loss, declined due to financial restraints. Encouraged to eat healthy, include fresh fruits and vegetables daily and avoid eating fried foods more than once per week. Replace 1 box of macaroni and cheese for bedtime snack to one hot dog with small amount of catsup. Convulsions 05/21/2016 Overview (10/29/2024): Eugene has had 2 episodes suspicious for [...] since Epilepsy syndrome: Etiology: EEG Information at [facility]: EEG is abnormal with evidence of sharply apiculate activity with localization to the left temporal. This suggests underlying low threshold for seizure activity. Neuroimaging: None Other med history: developmental disorder, ADHD, mood disorder, LD Medication: Started Depakote 250 mg bid. (Previously on Depakote for mood stabilization. It was stopped about 6-8 months before seizures by psychiatrist and Seroquel started). Previous medications: none Bipolar 1 disorder 09/16/2014 Developmental delay 09/16/2014 Overview (10/29/2024): Intellectually delayed Hypernatremia 09/15/2014 Fecal impaction ([facility]) 06/29/2013 Overview (10/29/2024): 13 y/o male with a long history [...] in 4 hours after enema and Golytely. Resolved Problems Problem Noted Date Diagnosed Date Resolved Date Dehydration 05/18/2020 05/19/2020 Type 2 diabetes mellitus wit hout complication, with long-term current use of insulin ([facility]) 05/16/2020 10/29/2024 Overview (04/05/2021): Diagnosed April 2020 on insulin until 04/14. Off insulin Assessment & Plan (11/29/2021 10:02 AM SHERIFF OFFICER): This is a chronic condition which is not at goal. Personally reviewed A1c today- 7.1%, not at goal less than 7% Personally reviewed blood sugar -150 at goal 80-180 Medication- decreased to Trulicity 3mg weekly due to vomiting, continue Metformin 1000mg twice a day. Add jardiance 10mg po daily am Monitor blood sugar 2 times a day. Encouraged annual eye exam. last dilated eye exam was April 2020 at [facility] in [place] Monofilament foot exam completed, protective senses intact Urine microalbumin/creatinine ratio - 30 (8.20) currently on clonidine, at goal <30 Personally reviewed labs (6.20): BUN-10, creatinine-0.91 GFR-122 Kidney function- normal B/P today- 136/94- after sitting- 124/90, currently on clonidine. Not at goal blood pressure is <140/90 and as close to 120/80 as possible. Personally reviewed (01/15) LDL - 89, currently on atorvastatin 40mg daily. Goal of less than 70 No history of macrovascular disease - CVA, HI. Encouraged to see dietitian for weight loss- he declined at this time. Assessment & Plan (04/05/2021 1:53 PM CDT): This is a chronic condition which is stable, controlled, at goal. Personally reviewed A1c today- 6.4, which is improved from 9.8 on 05/14. At goal less than 7% Personally reviewed blood sugar -94 at goal 80-180 Medication- Increase Trulicity 3gm weekly, continue metformin 1000 mg twice daily, Stop Lantus 15 units unless blood sugar is greater than 250 at bedtime. Monitor blood sugar 2 times a day. Encouraged annual eye exam. last dilated eye exam was April 2020 at [facility] in [place] Monofilament foot exam completed, protective senses intact Urine microalbumin/creatinine ratio - 30 (8.20) currently on clonidine, at goal <30 Personally reviewed labs (6.20): BUN-10, creatinine-0.91 GFR-122 Kidney function- normal B/P today- 132/70, currently on clonidine. At goal blood pressure is <140/90 and as close to 120/80 as possible. Personally reviewed (01/15) LDL - 89, currently on atorvastatin 40mg daily. Goal of less than 70 No history of macrovascular disease - CVA, HI. Assessment & Plan (01/05/2021 3:29 PM SHERIFF OFFICER): This is a chronic condition which is worsening, but still at goal of less than 7% Personally reviewed labs, A1c-6.7, at goal Medication- Continue on Metformin 1000mg twice daily Lantus 20 units daily. Add Trulicity 0.75 mg weekly. Both patient and grandmother denied history of pancreatitis Monitor blood sugar 2 times a day. last dilated eye exam was April/[address] [facility] in [place] Monofilament foot exam completed, protective senses intact Urine microalbumin/creatinine ratio - less than 30 on 07/14. normal. At goal of less than 30 with clonidine 0.1mg twice daily. Kidney function eGRF-122, BUN- 10, creatinine- 0.91. Normal kidney function. BP today-130/80, currently not on BRIDGET/ARB. At goal of less than 140/80 on Clonidine 0.1mg twice daily. Managed by PCP. Assessment & Plan (11/03/2020 4:04 PM SHERIFF OFFICER): This is a chronic condition which is improving, stable and at goal of less than 7% Personally reviewed labs, A1c-6.5 improved from 6.7- a goal Medication- Continue on Metformin 1000mg twice daily decrease Lantus 20 units daily. Monitor blood sugar 2 times a day. Discussed adding GLP-1 to assist in weight loss, declined due to financial restraints, will retry after insurance changes in November. last dilated eye exam was April/[address] [facility] in [place] Monofilament foot exam completed, protective senses intact Urine microalbumin/creatinine ratio - normal Kidney function eGRF-122, BUN- 10, creatinine- 0.91. Normal kidney function BP today-128/76, currently not on BRIDGET/ARB Cholesterol 217 HDL - 39 LDL- 146 Triglycerides- 183 - atorvastatin 20 mg po daily. No history of macrovascular disease - CVA, HI. Encouraged weight loss and exercise. Assessment & Plan (09/09/2020 10:13 AM CDT): This is a chronic condition which is improving Labs reviewed. Last A1c-7.8, states A1c from another provider was down to 6.[address] Alexx MANNING Medication- Continue on Metformin 1000mg twice daily Lantus 25 units daily. Monitor blood sugar 2 times a day. Discussed adding GLP-1 to assist in weight loss, declined due to financial restraints. last dilated eye exam was April/[address] [facility] in [place] Monofilament foot exam completed, protective senses intact Urine microalbumin/creatinine ratio - normal Kidney function eGRF-122, BUN- 10, creatinine- 0.91 BP today-130/74, currently not on BRIDGET/ARB Cholesterol 217 HDL - 39 LDL- 146 Triglycerides- 183 - atorvastatin 20 mg po daily. No history of macrovascular disease - CVA, HI. Assessment & Plan (06/30/2020 10:16 AM CDT): This is a chronic condition which is improving, but not at goal. Labs reviewed. A1c today-7.8 Medication- Continue Metformin 1000mg bid, Continue on Metformin 1000mg twice daily Lantus 30 units daily. May decrease insulin by 5 units when fasting (first blood sugar of the day) is in the 90 for 3 days. Monitor blood sugar 2 times a day. last dilated eye exam was April/2020 at [facility] in [place] Monofilament foot exam completed, protective senses intact Urine microalbumin/creatinine ratio - normal Kidney function eGRF-122, BUN- 10, creatinine- 0.91 BP today-120/80, currently not on BRIDGET/ARB Lipid panel ordered today , currently not on a statin No history of macrovascular disease - CVA, HI. Assessment & Plan (05/19/2020 11:33 AM CDT): This is a chronic condition which is uncontrolled with hyperglycemia. Simplify diabetes care for increase compliance. Labs reviewed. See the dietitian, attend diabetes education classes. Start walking again and attempt to lose weight Continue Lantus 45 units at bedtime. Stop lispro 15 units at meals. Start Metformin 1000mg twice daily Start Invokana 100mg daily. Monitor blood sugar 2 times a day. Surveillance of Diabetes complications dilated eye exam is needed, mother states it is not covered by his insurance company. protective sensation to feet intact EGrf-122 BP today- 124/90 LDL- 106 No history of macrovascular disease - CVA, HI. TSH- 264 C-peptide and betahydroxybutrate were completed while he was hospitalized with normal results. Hyponatremia 05/19/2020 Diabetic acidosis without coma (CMS/HCC) 07/06/2020 Immunizations Name Administration Dates Next Due DTaP 07/04/2005, 2,03/04/2001,11/29,2000 DTaP / HiB 2000 HPV9 06/27/2017 Hep A, Pediatric 07/06/2015,06/16/2014 Hep B, Adolescent or Pediatric 03/04/2001,1999,2000 HiB 09/24/2001, 1,2000,08/26 Hib (HbOC) 03/04/2001,2000 IPV 07/04/2005, 2,2000,08/26 Influenza, Live, Intranasal, Quadrivalent 09/08/2014,09/07/2014 Influenza, Split 08/17/2010,10/07/2009, 8 Influenza, Unspecified 10/06/2024,2022(Deferred: Patient Refused),09/08/2023(Deferred: Patient Refused) MMR 07/04/2005,09/24/2001 Meningococcal Conjugate (Menveo) 06/27/2017,05/26 Pneumococcal Conjugate 7-Valent 09/24/20 01,03/04/2001,2000,08/26 Tdap 06/20/2011 Varicella 08/17/2008,08/08/2001 Social History Tobacco Use Types Packs/Day Years Used Date Smoking Tobacco: Never Smokeless Tobacco: Never Tobacco Cessation:Counseling Given: Not Answered Alcohol Use Standard Drinks/Week Comments No 0 (1 standard drink = 0.6 oz pur e alcohol) PHQ-2 Answer Date Recorded PHQ-2 Total Score (If total score is 3 or more points, staff should administer the PHQ-9) 0 10/29/2024 Sex and Gender Information Value Date Recorded Sex Assigned at Not on file Legal Sex Male 11:28 PM SHERIFF OFFICER Gender Identity Not on file Sexual Orientation Not on file Last Filed Vital Signs Vital Sign Reading Time Taken Comments Blood Pressure 126/68 12/15/2024 9:55 AM SHERIFF OFFICER Pulse 94 12/15/2024 9:55 AM SHERIFF OFFICER Temperature 36.3 C (97.3 F) 12/15/2024 9:55 AM SHERIFF OFFICER Respiratory Rate 18 10/17/2021 8:37 PM SHERIFF OFFICER Oxygen Saturation 97% 12/15/2024 9:55 AM SHERIFF OFFICER Inhaled Oxygen Concentration - - Weight 136.5 kg (301 lb) 12/15/2024 9:55 AM SHERIFF OFFICER Height 185.4 cm (6' 0.99 ) 12/15/2024 9:55 AM CS T Body Mass Index 39.72 12/15/2024 9:55 AM SHERIFF OFFICER Plan of Treatment Not on file Procedures Procedure Name Priority Date/Time Associated Diagnosis Comments POCT HEMOGLOBIN A1C Routine 11/29/2021 9 :27 AM SHERIFF OFFICER Type 2 diabetes mellitus without complication, with long-term current use of insulin ([facility]) ([facility]) POCT LIPID PANEL Routine 01/05/2021 3:21 PM SHERIFF OFFICER Type 2 diabetes mellitus with hyperlipidemia ([facility]) DIABETIC EYE EXAM Routine 08/08/2020 EGFR Routine 05/17/2020 6:43 AM CDT from Last 3 Months or Most Recently Relevant to Health Maintenance Results * POCT hemoglobin A1c (11/29/2021 9:27 AM SHERIFF OFFICER) Hemoglobin A1C, POC 7.1 Blood specimen (specimen) 11/29/2021 9:27 AM SHERIFF OFFICER Melinda Lawson NP POINT OF CARE TEST ORDERABLES F inal Result * POCT lipid panel (01/05/2021 3:21 PM SHERIFF OFFICER) Cholesterol, POC 162 mg/dL HDL, POC 25 mg/dL Triglycerides, POC 242 mg/dL LDL Cholesterol POC 89 mg/dL Chol/HDL Ratio, POC 6.4 Non-HDL Cholesterol, POC 137 mg/dL Capillary blood 01/05/2021 3 :21 PM SHERIFF OFFICER Melinda Lawson NP POINT OF CARE TEST ORDERABLES F inal Result * Diabetic Eye Exam (08/08/2020) Historical Provider HEALTH MAINTENANCE Edited Result - Final * eGFR (05/17/2020 6:43 AM CDT) eGFR 122 mL/min/1.7 3 m2 MARIOLA BRENNAN (SIDELL) Comment: Interpretive Data Reference Interval Normal >/= 90 mL/min/1.73m2 Mildly decreased* 60 - 89 mL/min/1.73m2 Mildly to moderately decreased 45 - 59 mL/min/1.73m2 Moderately to severely decreased 30 - 44 mL/min/1.73m2 Severely decreased 15 - 29 mL/min/1.73m2 Kidney Failure < 15 mL/min/1.73m2 *Relative to young adult level If -Macedonian multiply value by 1.16. Estimated glomerular filtration rate is determined by the CKD-EPI equation recommended by the National Kidney Foundation (KDIGO 2012 Clinical Practice Guideline for the Evaluation and Management of Chronic Kidney Disease. Kidney Intnl Suppl Nov 2012;3:1). The CKD-EPI equation should not be used for patients with unstable renal function and has not been validated in children and those over 70. Current interpretive data was last reviewed 2016. Blood specimen (specimen) 05/17/2020 6:43 AM CDT 05/17/2020 7:14 AM CDT us Carrie Smith MD LAB BLOOD ORDERABLES Final Re sult MARIOLA BRENNAN (MARLYS) [address] [facility] Department [place] [address] from Last 3 Months or Most Recently Relevant to Health Maintenance Insurance [employer] [facility] IDPA [facility] MDCR HMO REF MEDICARE [employer] MED[employer] IDPA Advance Directives For more information, please contact: [phone] Documents on File Type Date Recorded Patient Metal Bumper Expl anation Power of Outpatient Scheduler 10/29/2024 2:42 PM ADVANCE DIRECTIVE 05/20/2020 9:11 AM Power of Outpatient Scheduler-Medical * Full Code (Latest Code Status on File) Date Activated Date Inactivated Comments 05/15/2020 7:53 PM 05/17/2020 8:45 PM Care Teams Purse Seiner Relationship Specialty Start Date End Date Baldemar Landry MD [address] [place] [address] PCP - General Family Practice 10/29/24 Melinda Lawson, ADDIE Nurse Practitioner Endocrinology Diabetes & Metabolism 09/26/20
--- OUTSIDE RECORDS SUMMARY | 2025-01-05 17:22 | XMS_ITS | Referral Summary ---
Author Organization [facility] Address [address] [place] [address] Care Team Providers Care Care Aid Name Role Phone Yoselyn Oseguera MD Primary Care Provider Source Comments [facility] [employer],non-owned Affiliates and Associated Physician Practices is amultiple site organization consisting of ambulatory clinics and hospital sitesin [place], [place], [place] and [place]. This disclosure is being madepursuant to the Care Everywhere program and may not contain all information available regarding this patient. Last updated 18.[facility] [employer] Allergies No known active allergies Medications * [...] be different from the original. Mom Olegario) [phone]. Problem Noted Date Diagnosed Date Convulsions 05/21/2016 [...] since Epilepsy syndrome: Etiology: EEG Information at [facility]: EEG is abnormal with evidence of sharply [...] loosening if no satisfactory large stool removal. Social History Tobacco Use Types Packs/Day Years [...] PM CDT Body Mass Index - - Functional Status Functional Status Response Date of Assess ment Is person deaf or have serious hearing difficult y? No 09/10/2014 Is person blind or have serious difficulty seein g? No 09/10/2014 Does person have serious dif ficulty walking/climbing stairs? No 09/10/2014 Does person have difficulty dressing/bathing? No 09/10/2014 Does person have difficulty doing errands alone? No 09/10/2014 Cognitive Status Response Date of Assessm ent Does person have difficulty concentrating/remembering/making decisions? No 09/10/2014 Plan of Treatment Not on file Care Teams Care Aid Relationship Specialty Start Date End Date Yoselyn Oseguera MD [address] [facility] [address] [place] [address] PCP - General Pediatrics 02/04/17
--- OUTSIDE RECORDS SUMMARY | 2025-01-05 17:22 | XMS_ITS | Patient Health Summary ---
Author Organization [facility] Address [address] [facility] [place] [address] Care Team Providers Care Audit Clerk Name Role Phone Yoselyn Oseguera MD Primary Care Provider [phone] Note from [facility],non-owned Affiliates and Associated Physician Practices is amultiple site organization consisting of ambulatory clinics and hospital sitesin [place], [place], [place] and [place]. This disclosure is being madepursuant to the Care Everywhere program and may not contain all information available regarding this patient. Last updated 18.[facility] Allergies No known active allergies Medications * Be aware that medications may not be up to date on this document. Alwaysverify current medications with the patient. * polyethylene glycol 3350 (MIRALAX) packet(Started 09/16/2014) Use 1 pkt daily with 8 oz water. If you do not have stools for one day, then double the dose and ifyou do not have stools for 2 days or more call GI office 3 refills left * VYVANSE 70 MG capsule(Started 04/18/2016) Take 70 mg by mouth every morning * busPIRone (BUSPAR) 15 MG tablet(Started 05/14/2016) Take 15 mg by mouth 2 times daily 1 refill left * QUEtiapine (SEROQUEL) 300 MG tablet(Started 05/01/2016) Take 600 mg by mouth once daily * omeprazole EC (PRILOSEC OTC) 20 MG tablet(Started 05/07/2016) Take 20 mg by mouth once daily 3 refills left * traZODone (DESYREL) 50 MG tablet(Started 02/26/2017) TAKE 1.5TABS BY MOUTH AT BEDTIME * divalproex DR (DEPAKOTE) 250 MG tablet(Started 02/10/2019) TAKE 1 TABLET BY MOUTH TWICE DAILY Active Problems Problem Noted Date Diagnosed Date Convulsions 05/21/2016 Developmental delay 09/16/2014 Bipolar disorder 09/16/2014 Hypernatremia 09/15/2014 Fecal impaction 06/29/2013 Social History Tobacco Use Types Packs/Day Years [...] PM CDT Body Mass Index - - Procedures * MRI BRAIN WWO CONTRAST(Performed 05/24/2017) Performed for Seizure disorder (HCC) * VALPROIC ACID LEVEL(Performed 03/26/2017) Performed for Seizure disorder (HCC) * COMPREHENSIVE METABOLIC PANEL(Performed 03/26/2017) Performed for Seizure disorder (HCC) * CBC W AUTO DIFFERENTIAL(Performed 03/26/2017) Performed for Seizure disorder (HCC) * LAB RESULTS ORDER(Performed 09/18/2016) * LAB RESULTS ORDER(Performed 06/01/2016) * FL LOWER GI WATER SOLUBLE(Performed 09/16/2014) Performed for Fecal impaction (HCC) * XR ABDOMEN KUB(Performed 09/15/2014) Performed for Fecal impaction (HCC) * BASIC METABOLIC PANEL (CALCIUM TOTAL)(Performed 09/15/2014) * XR ABDOMEN KUB(Performed 09/14/2014) Performed for Fecal impaction (HCC) * BASIC METABOLIC PANEL (CALCIUM TOTAL)(Performed 09/14/2014) * BASIC METABOLIC PANEL (CALCIUM TOTAL)(Performed 09/13/2014) * BASIC METABOLIC PANEL (CALCIUM TOTAL)(Performed 09/12/2014) * COMPREHENSIVE METABOLIC PANEL(Performed 09/11/2014) * XR ABDOMEN KUB(Performed 09/10/2014) Performed for Fecal impaction (HCC) * XR ABDOMEN KUB(Performed 07/01/2013) Performed for Fecal impaction (HCC) * BASIC METABOLIC PANEL (CALCIUM TOTAL)(Performed 06/30/2013) * T4 FREE(Performed 06/30/2013) * TSH(Performed 06/30/2013) * IGA BLOOD(Performed 06/30/2013) * TISSUE TRANSGLUTAMINASE AB IGA(Performed 06/30/2013) * LAB RESULTS ORDER(Performed 05/05/2013) * IMAGING/RADIOLOGY/XRAY RESULTS ORDER(Performed 05/05/2013) Results * MRI BRAIN WITH AND WITHOUT CONTRAST (05/24/2017 11:24 AM CDT) Anatomical Region Laterality Modality Head Magnetic Resonan ce 05/24/2017 11:3 6 AM CDT Impressions 05/24/2017 1:00 PM CDT 1. A small focus of nonenhancing faint T2/FLAIR hyperintensity in the right frontal lobe white matter, a nonspecific finding that could represent demyelination, sequela of a previous injury. No other findings to explain seizures. I, Danya Carr, have personally reviewed the images and I agree with this report. Narrative 05/24/2017 1:00 PM CDT EXAMINATION: Magnetic resonance imaging (MRI) of the brain without and with contrast HISTORY: 16-year-old male with epilepsy. TECHNIQUE: MRI of the brain was performed prior to and following the uneventful administration of 16 mL Dotarem intravenous gadolinium contrast according to a seizure protocol. This included detailed coronal imaging of the hippocampi and temporal lobes. FINDINGS: No prior study is available for comparison at the time of this dictation. No evidence of acute or chronic hemorrhage is identified. No evidence of acute cerebral infarction is seen. The ventricles are of normal size, shape, and morphology. No mass effect or midline shift is seen. There is a punctate FLAIR hyperintensity in the periventricular white matter of the right frontal lobe, which is nonspecific and may represent sequela of prior injury. There is no associated hemorrhage. No enhancing lesions are identified. The hippocampi are symmetric in size and signal. The corpus callosum and sella appear normal. The posterior fossa, brainstem, and craniocervical junction appear normal. The visualized portions of the orbits, paranasal sinuses, and mastoids appear normal. Normal flow voids are demonstrated in the carotid arteries and basilar artery. The calvarium and visualized cervical spine appear normal. Procedure Note Danya Carr MD - 05/24/2017 EXAMINATION: Magnetic resonance imaging (MRI) of the brain without and with contrast HISTORY: 16-year-old male with epilepsy. TECHNIQUE: MRI of the brain was performed prior to and following the uneventful administration of 16 mL Dotarem intravenous gadolinium contrast according to a seizure protocol. This included detailed coronal imaging of the hippocampi and temporal lobes. FINDINGS: No prior study is available for comparison at the time of this dictation. No evidence of acute or chronic hemorrhage is identified. No evidence of acute cerebral infarction is seen. The ventricles are of normal size, shape, and morphology. No mass effect or midline shift is seen. There is a punctate FLAIR hyperintensity in the periventricular white matter of the right frontal lobe, which is nonspecific and may represent sequela of prior injury. There is no associated hemorrhage. No enhancing lesions are identified. The hippocampi are symmetric in size and signal. The corpus callosum and sella appear normal. The posterior fossa, brainstem, and craniocervical junction appear normal. The visualized portions of the orbits, paranasal sinuses, and mastoids appear normal. Normal flow voids are demonstrated in the carotid arteries and basilar artery. The calvarium and visualized cervical spine appear normal. IMPRESSION 1. A small focus of nonenhancing faint T2/FLAIR hyperintensity in the right frontal lobe white matter, a nonspecific finding that could represent demyelination, sequela of a previous injury. No other findings to explain seizures. I, Danya Carr, have personally reviewed the images and I agree with this report. Eugene Rouse MD MR ORDERABLES * (ABNORMAL) CBC W AUTO DIFFERENTIAL (03/26/2017 2:13 PM CDT) WBC 5.5 4.5 - 14.5 x10E9/L 03/26/2017 2:59 PM [facility] WBC Corrected x10E9/L 03/26/2017 2:59 PM [facility] RBC 4.71 4.50 - 5.30 x10E12/L 03/26/2017 2:59 PM [facility] Hemoglobin 14.9 13.0 - 16.0 gm/dL 03/26/2017 2:59 PM [facility] Hematocrit 41.8 37.0 - 49.0 % 03/26/2017 2:59 PM [facility] MCV 88.7 78.0 - 98.0 fl 03/26/2017 2:59 PM [facility] MCH 31.6 25.0 - 35.0 pg 03/26/2017 2:59 PM [facility] MCHC 35.6 31.0 - 37.0 gm/dL 03/26/2017 2:59 PM [facility] Platelet Count 183 100 - 400 x10E9/L 03/26/2017 2:59 PM [facility] RDW-CV 11.6 11.5 - 14.0 % 03/26/2017 2:59 PM [facility] MPV 11.1(H) 6.0 - 9.5 fl 03/26/2017 2:59 PM [facility] Neutrophils % 39.8 24.0 - 66.0 % 03/26/2017 2:59 PM [facility] Lymphocytes % 48.8 22.0 - 61.0 % 03/26/2017 2:59 PM [facility] Monocytes % 11.2 3.0 - 15.0 % 03/26/2017 2:59 PM [facility] Eosinophils % 0.0 0.0 - 10.0 % 03/26/2017 2:59 PM [facility] Basophils % 0.2 % 03/26/2017 2:59 PM [facility] Immature Granulocytes 0.0 % 03/26/2017 2:59 PM [facility] Neutrophil Absolute 2.20 x10E9/L 03/26/2017 2:59 PM [facility] Lymphocytes Absolute 2.70 x10E9/L 03/26/2017 2:59 PM [facility] Monocytes Absolute 0.62 x10E9/L 03/26/2017 2:59 PM CDT [facility] Eosinophils Absolute 0.00 x10E9/L 03/26/2017 2:59 PM CDT [facility] Basophils Absolute 0.01 x10E9/L 03/26/2017 2:59 PM CDT [facility] Immature Granulocytes Absolute 0.00 x10E9/L 03/26/2017 2:59 PM CDT [facility] nRBC Auto 0 /100 WBC 03/26/2017 2:59 PM CDT [facility] Blood BLOOD SPECIMEN / Unknown Lab Venipuncture / Unknown 03/26/2017 2:13 PM CDT 03/26/2017 2:33 PM CDT Eugene Rouse MD LAB - HEMATOLOGY ORD ERABLES [facility] [address] [place] [phone] * COMPREHENSIVE METABOLIC PANEL (03/26/2017 2:13 PM CDT) Only the most recent of2 resultswithin the time period is included. Glucose 83 70 - 105 mg/dL 03/26/2017 3:14 PM T [facility] Sodium 140 136 - 145 mmol/L 03/26/2017 3:14 PM T [facility] Potassium 4.1 3.5 - 5.1 mmol/L 03/26/2017 3:14 PM T [facility] Chloride 104 98 - 107 mmol/L 03/26/2017 3:14 PM T [facility] CO2 28 20 - 28 mmol/L 03/26/2017 3:14 PM T [facility] Calcium 9.40 9.08 - 10.48 mg/dL 03/26/2017 3:14 PM T [facility] Anion Gap 8 5 - 20 mmol/L 03/26/2017 3:14 PM T [facility] BUN 13.4 5.3 - 18.7 mg/dL 03/26/2017 3:14 PM T [facility] Creatinine 0.81 0.61 - 1.07 mg/dL 03/26/2017 3:14 PM T [facility] Alkaline Phosphatase 115 100 - 390 U/L 03/26/2017 3:14 PM CDT [facility] ALT 11 6 - 46 U/L 03/26/2017 3:14 PM CDT [facility] AST 20 3 - 35 U/L 03/26/2017 3:14 PM CDT [facility] Protein Total 7.3 6.3 - 8.2 gm/dL 03/26/2017 3:14 PM CDT [facility] Albumin 4.6 3.3 - 4.9 gm/dL 03/26/2017 3:14 PM CDT [facility] Bilirubin Total 0.6 0.3 - 1.2 mg/dL 03/26/2017 3:14 PM CDT [facility] eGFR by MDRD mL/min/1.7 3m2 03/26/2017 3:14 PM CDT [facility] Comment: eGFR calculations are not performed for children under 18 years old. eGFR by MDRD mL/min/1.7 3m2 03/26/2017 3:14 PM CDT [facility] Comment: eGFR calculations are not performed for children under 18 years old. Blood BLOOD SPECIMEN / Unknown Lab Venipuncture / Unknown 03/26/2017 2:13 PM CDT 03/26/2017 2:33 PM CDT Eugene Rouse MD LAB - CHEMISTRY DENA AYALA Performing Organization Address City/[facility]/ZIP Co de Phone Number [facility] [address] [place] [phone] * VALPROIC ACID LEVEL (03/26/2017 2:13 PM CDT) Valproic Acid 56.40 50 - 100 ug/mL 03/26/2017 3:20 PM CDT [facility] Blood BLOOD SPECIMEN / Unknown Lab Venipuncture / Unknown 03/26/2017 2:13 PM CDT 03/26/2017 2:33 PM CDT Eugene Rouse MD LAB - CHEMISTRY DENA AYALA Performing Organization Address [facility]/ZIP Co de Phone Number [facility] [address] [place] [phone] * LAB RESULTS ORDER (09/18/2016 6:24 PM CDT) Only the most recent of3 resultswithin the time period is included. Narrative 09/18/2016 6:24 PM CDT Ordered by an unspecified provider. Scanned Document LAB - THERAPEUTIC DR GILDARDO MONITORING ORDERABLES * FL LOWER GI WATER SOLUBLE (09/16/2014 12:45 PM CDT) Anatomical Region Laterality Modality Abdomen Radio Fluoroscop y 09/16/2014 1:42 PM CDT Impressions 09/16/2014 1:45 PM CDT 1. Markedly redundant colon with large rectal stool ball. 2. No transition zone to suggest Hirschsprung's disease. Narrative 09/16/2014 1:45 PM CDT EXAMINATION: Contrast enema COMPARISON: None. HISTORY: Fecal impaction Fluoroscopy time: 2.2 minutes FINDINGS: Initial KUB is unremarkable. There are no sacral anomalies. The bowel gas pattern is non-obstructed. Following placement of a rectal tube dilute Gastrografin was instilled in usual retrograde fashion by gravity filling the cecum. There is no presacral mass. Stool is seen down to the level of the anal verge. No transition zone is identified. The cecum is fixed in the right lower quadrant. The colon was dilated and markedly redundant. Following evacuation there is clearance of a large amount of the contrast. A large stool ball in the rectum is unchanged. Procedure Note Jodi Keith MD - 09/16/2014 EXAMINATION: Contrast enema COMPARISON: None. HISTORY: Fecal impaction Fluoroscopy time: 2.2 minutes FINDINGS: Initial KUB is unremarkable. There are no sacral anomalies. The bowel gas pattern is non-obstructed. Following placement of a rectal tube dilute Gastrografin was instilled in usual retrograde fashion by gravity filling the cecum. There is no presacral mass. Stool is seen down to the level of the anal verge. No transition zone is identified. The cecum is fixed in the right lower quadrant. The colon was dilated and markedly redundant. Following evacuation there is clearance of a large amount of the contrast. A large stool ball in the rectum is unchanged. IMPRESSION 1. Markedly redundant colon with large rectal stool ball. 2. No transition zone to suggest Hirschsprung's disease. Gen Glaser MD FLUOROSCOPY ORDERABL ES * XR ABDOMEN 1 VW (09/15/2014 11:26 AM CDT) Only the most recent of4 resultswithin the time period is included. Anatomical Region Laterality Modality Abdomen Radiographic Ynes ging 09/15/2014 11:2 9 AM CDT Impressions 09/15/2014 11:29 AM CDT Diminished solid fecal bolus in rectum. Narrative 09/15/2014 11:29 AM CDT KUB performed September 15, 2014. History: Constipation. An AP supine view the abdomen and pelvis was obtained and is compared to prior study of September 14, 2014. An esophageal catheter is again seen with positions unchanged. There is a small amount of solid stool within the rectum. This is slightly diminished in size since the prior examination. Air-filled loops of large and small bowel are again seen proximally. The lung bases remain clear. Procedure Note Georgia Veliz MD - 09/15/2014 KUB performed September 15, 2014. History: Constipation. An AP supine view the abdomen and pelvis was obtained and is compared to prior study of September 14, 2014. An esophageal catheter is again seen with positions unchanged. There is a small amount of solid stool within the rectum. This is slightly diminished in size since the prior examination. Air-filled loops of large and small bowel are again seen proximally. The lung bases remain clear. IMPRESSION Diminished solid fecal bolus in rectum. Tee Simon MD DIAGNOSTIC IMAGING O RDERABLES * (ABNORMAL) BASIC METABOLIC PANEL (CALCIUM TOTAL) (09/15/2014 5:22 AM CDT) Only the most recent of5 resultswithin the time period is included. Glucose 97 70 - 105 mg/dL 09/15/2014 6:19 AM CDT [facility] Sodium 148(H) 136 - 145 mmol/L 09/15/2014 6:19 AM CDT [facility] Potassium 5.4(H) 3.5 - 5.1 mmol/L 09/15/2014 6:19 AM CDT [facility] Chloride 110(H) 98 - 107 mmol/L 09/15/2014 6:19 AM CDT [facility] CO2 23 20 - 28 mmol/L 09/15/2014 6:19 AM T [facility] Calcium 9.73 8.92 - 10.32 mg/dL 09/15/2014 6:19 AM T [facility] Anion Gap 15 5 - 20 mmol/L 09/15/2014 6:19 AM T [facility] BUN 5.7(L) 6.1 - 21.0 mg/dL 09/15/2014 6:19 AM T [facility] Creatinine 0.69 0.62 - 1.00 mg/dL 09/15/2014 6:19 AM T [facility] eGFR by MDRD mL/min/1.7 3m2 09/15/2014 6:19 AM T [facility] Comment:eGFR calculations ar e not performed for children under 18 years old. eGFR by MDRD mL/min/1.7 3m2 09/15/2014 6:19 AM T [facility] Comment:eGFR calculations ar e not performed for children under 18 years old. Blood BLOOD SPECIMEN / Unknown Lab Venipuncture / Unknown 09/15/2014 5:22 AM CDT 09/15/2014 5:42 AM CDT Gen Glaser MD LAB - CHEMISTRY ORDOriana AYALA [facility] Organization Address City/State/[facility] Co de Phone Number [facility] [address] [phone] * TISSUE TRANSGLUTAMINASE AB IGA (06/30/2013 4:36 AM CDT) Tissue Transglutaminase (tTG) Ab, IgA 3 0 - 19 Units 07/01/2013 3:48 PM CDT [facility] Comment: INTERPRETIVE INFORMATION: Tissue Transglutaminase (tTG) Antibody, IgA 19 Units or less: Negative 20-30 Units: Weak Positive 31 Units or greater: Moderate to Strong Positive Presence of the tissue transglutaminase (tTG) IgA antibody is associated with gluten-sensitive enteropathies such as celiac disease and dermatitis herpetiformis. tTG IgA antibody concentrations greater than or equal to 100 Units usually correlate with results of duodenal biopsies consistent with a diagnosis of celiac disease. For antibody concentrations greater than 20 Units but less than 100 Units, additional testing for endomysial (SENIA) IgA concentrations may improve the positive predictive value for disease. Blood specimen (specimen) BLOOD SPECIMEN / Unknown 06/30/2013 4:36 AM CDT 06/30/2013 4:52 AM CDT Eugene Rouse MD LAB - SEROLOGY ORDER [facility] [address] [place] [address] * TSH (06/30/2013 4:36 AM CDT) TSH 4.54 0.35 - 4.95 uIU/mL 06/30/2013 5:37 AM CDT [facility] Blood BLOOD SPECIMEN / Unknown 06/30/2013 4:36 AM CDT 06/30/2013 4:52 AM CDT Eugene Rouse MD LAB - CHEMISTRY ORDOriana AYALA Performing Organization Address [facility] Co de Phone Number [facility] [address] [place] [phone] * T4 FREE (06/30/2013 4:36 AM CDT) T4 Free 0.89 0.70 - 1.48 ng/dL 06/30/2013 5:41 AM CDT [facility] Blood BLOOD SPECIMEN / Unknown 06/30/2013 4:36 AM CDT 06/30/2013 4:52 AM CDT Eugene Rouse MD LAB - CHEMISTRY ORDOriana AYALA Performing Organization Address City/[facility] Co de Phone Number [facility] [address] [place] [phone] * IGA BLOOD (06/30/2013 4:36 AM CDT) IgA 120 63 - 484 mg/dL 07/01/2013 2:57 PM CDT [facility] Blood BLOOD SPECIMEN / Unknown 06/30/2013 4:36 AM CDT 06/30/2013 4:52 AM CDT Eugene Rouse MD LAB - CHEMISTRY ORDE RABLES [facility] [address] [place] [address] * IMAGING/RADIOLOGY/XRAY RESULTS ORDER (05/05/2013 7:34 AM CDT) Anatomical Region Laterality Modality Other Narrative 05/05/2013 7:34 AM CDT Procedure Note Document, Scanned - 05/05/2013 7:34 AM CDT Scanned Document IMAGING Care Teams Audit Clerk Relationship Specialty Start Date End Date Yoselyn Oseguera MD [address] [id number] PCP - General Pediatrics 02/04/17
--- OUTSIDE RECORDS SUMMARY | 2025-01-05 17:22 | XMS_ITS | Clinical Summary ---
Author Organization [facility] Address [address] [place] [address] Care Team Providers Care Safety Analyst Name Role Phone Melinda Lawson NP Unavailable [phone] Baldemar Landry MD Primary Care Provi billy Allergies Active Allergy Reactions Criticality Noted Date [...] Active TechLITE Pen Needle 32 gauge x /4 needle 0 Active alcohol swabs pads, medicatedIndica tions:New onset type 2 diabetes mellitus (CMS/HCC) (HCC) Apply 1 each topically 2 (two) times [...] ns:New onset type 2 diabetes mellitus (CMS/HCC) ([facility]) TAKE 1 TABLET(1000 MG) BY MOUTH TWICE DAILY WITH MEALS 180 tablet 3 1 Active blood glucose diagnostic (OneTouch Verio test strips) strip USE TO TEST BLOOD SUGAR TWICE DAILY 200 strip 11 2 Active neomycin-polymy david-HC (CORTISPORIN) 3.5-10,000-1 mg/mL-unit/mL-% [...] 1 tablet (10 mg total) by mouth benzene washer before breakfast e11.65 30 tablet 5 2 [...] 1 tablet (7 mg total) by mouth benzene washer before breakfast 30 tablet 5 5 07/02/20 [...] complication, without long-term current use of insulin ([facility]) 10/29/2024 Class 2 severe obesity with serious comorbidity and body mass index (BMI) of 38.0 to 38.9 in adult 10/29/2024 Seizure disorder ([facility]) 10/29/2024 Hyperlipidemia associated with type 2 diabetes libertad noriega 09/09/2020 Assessment & Plan (11/29/2021 10:02 AM PRODUCT COORDINATOR): This is a chronic condition which is [...] daily. Assessment & Plan (01/05/2021 3:15 PM PRODUCT COORDINATOR): This is a chronic condition which is improving, but not at goal. Reviewed labs. Encouraged to eat healthy, include fresh fruits and vegetables daily and avoid eating fried foods more than once per week. Please take medications as prescribed. Increase Atorvastatin from 20mg to 40 mg daily. 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 Encouraged weight loss and exercise. Assessment & Plan (11/03/2020 4:02 PM PRODUCT COORDINATOR): This is a chronic condition which is [...] since Epilepsy syndrome: Etiology: EEG Information at [facility]: EEG is abnormal with evidence of [...] (10/29/2024): Intellectually delayed Hypernatremia 09/15/2014 Fecal impaction (CMS/HCC) 06/29/2013 Overview (10/29/2024): 13 y/o male with [...] complication, with long-term current use of insulin ([facility]) 05/16/2020 10/29/2024 Overview (04/05/2021): Diagnosed April 2020 on insulin until 04/14. Off insulin Assessment & Plan (11/29/2021 10:02 AM PRODUCT COORDINATOR): This is a chronic condition which is [...] dilated eye exam was April 2020 at [facility] in [place] Monofilament foot exam completed, [...] No history of macrovascular disease - CVA, [place]. Encouraged to see dietitian for weight loss- [...] dilated eye exam was April 2020 at [facility] in [place] Monofilament foot exam completed, [...] No history of macrovascular disease - CVA, [place]. Assessment & Plan (01/05/2021 3:29 PM PRODUCT COORDINATOR): This is a chronic condition which is worsening, but still at goal of less than 7% Personally reviewed labs, A1c-6.7, at goal Medication- Continue on Metformin 1000mg twice daily Lantus 20 units daily. Add Trulicity 0.75 mg weekly. Both patient and grandmother denied history of pancreatitis Monitor blood sugar 2 times a day. last dilated eye exam was April/2020 at [facility] in [place] Monofilament foot exam completed, protective senses intact [...] PCP. Assessment & Plan (11/03/2020 4:04 PM PRODUCT COORDINATOR): This is a chronic condition which is [...] last dilated eye exam was April/2020 at [facility] in [place] Monofilament foot exam completed, protective senses intact Urine microalbumin/creatinine ratio - normal Kidney function eGRF-122, BUN- 10, creatinine- 0.91. Normal kidney function BP today-128/76, currently not on BRIDGET/ARB Cholesterol 217 HDL - 39 LDL- 146 Triglycerides- 183 - atorvastatin 20 mg po daily. No history of macrovascular disease - CVA, [place]. Encouraged weight loss and exercise. Assessment & [...] last dilated eye exam was April/2020 at [facility] in [place] Monofilament foot exam completed, protective senses intact Urine microalbumin/creatinine ratio - normal Kidney function eGRF-122, BUN- 10, creatinine- 0.91 BP today-130/74, currently not on BRIDGET/ARB Cholesterol 217 HDL - 39 LDL- 146 Triglycerides- 183 - atorvastatin 20 mg po daily. No history of macrovascular disease - CVA, [place]. Assessment & Plan (06/30/2020 10:16 AM CDT): [...] last dilated eye exam was April/2020 at [facility] in [place] Monofilament foot exam completed, protective senses intact Urine microalbumin/creatinine ratio - normal Kidney function eGRF-122, BUN- 10, creatinine- 0.91 BP today-120/80, currently not on BRIDGET/ARB Lipid panel ordered today , currently not on a statin No history of macrovascular disease - CVA, [place]. Assessment & Plan (05/19/2020 11:33 AM CDT): [...] No history of macrovascular disease - CVA, [place]. TSH- 264 C-peptide and betahydroxybutrate were completed while he was hospitalized with normal results. Hyponatremia 05/19/2020 Diabetic acidosis without coma (CMS/HCC) 07/06/2020 Encounters Date Type Department Care Team Description 12/15/2024 10:30 AM PRODUCT COORDINATOR Office Visit [facility] at [address] [phone] Baldemar Landry MD Encounter for other administrative examinations (Primary Dx); Developmental delay; Type 2 diabetes mellitus without complication, without long-term current use of insulin (CMS/HCC) (HCC); Hyperlipidemia associated with type 2 diabetes mellitus (HCC) 11/10/2024 Nurse Triage [facility] at [address] [phone] Baldemar Landry MD 10/29/2024 4:00 PM PRODUCT COORDINATOR Office Visit [facility] at [address] [phone] Baldemar Landry MD Type 2 diabetes mellitus without complication, without long-term current use of insulin (CMS/HCC) (HCC) (Primary Dx); Hyperlipidemia associated with type 2 diabetes mellitus (HCC); Bipolar 1 disorder (HCC); Class 2 severe obesity with serious comorbidity and body mass index (BMI) of 38.0 to 38.9 in adult, unspecified obesity type (HCC); Seizure disorder (CMS/HCC) (HCC); Acquired hypothyroidism from Last 3 Months Immunizations Name Administration Dates Next Due DTaP [...] 7-Valent 09/24/20 01,03/04/2001,2000,08/26 Tdap 06/20/2011 Varicella 08/17/2008,08/08/2001 Medical History Medical History Date Comments Adhd Bipolar 1 disorder (HCC) Anxiety Depression Seizures (HCC) Anger Diabetes mellitus (HCC) Social History Tobacco Use Types Packs/Day Years [...] on file Legal Sex Male 11:28 PM PRODUCT COORDINATOR Gender Identity Not on file Sexual Orientation Not on file Obstetrics History Last Filed Vital Signs Vital Sign Reading Time Taken Comments Blood Pressure 126/68 12/15/2024 9:55 AM PRODUCT COORDINATOR Pulse 94 12/15/2024 9:55 AM PRODUCT COORDINATOR Temperature 36.3 C (97.3 F) 12/15/2024 9:55 AM PRODUCT COORDINATOR Respiratory Rate 18 10/17/2021 8:37 PM PRODUCT COORDINATOR Oxygen Saturation 97% 12/15/2024 9:55 AM PRODUCT COORDINATOR Inhaled Oxygen Concentration - - Weight 136.5 kg (301 lb) 12/15/2024 9:55 AM PRODUCT COORDINATOR Height 185.4 cm (6' 0.99 ) 12/15/2024 9:55 AM CS T Body Mass Index 39.72 12/15/2024 9:55 AM PRODUCT COORDINATOR Plan of Treatment Health Maintenance Due Date Last Done Comments Albumin Creatinine Ratio, Urine 2000 Hepatitis C Screening 2000 Pneumococcal vaccine <65 (1 of 1 - PPSV23 or PCV20) 2006 09/24/2001, 03/04/2001, 2000, Additional history exists HPV Vaccines (2 - Male 3-dos e series) 07/25/2017 06/27/2017 Regular Well Visit/Exam 18-64 2018 eGFR 05/17/2021 05/17/2020, 04/26, 05/15/2020, Additional history exists Foot Exam 05/19/2021 05/19/2020 DTaP/Tdap/Td Vaccine (7 - Td or Tdap) 06/20/2021 06/20/2011, 07/04/2005, 01/23/2002, Additional history exists Lipid Panel 01/05/2022 01/05/2021, 07/27, 07/04/2020, Additional history exists Hemoglobin A1C 05/29/2022 11/29/2021, 03/25, 01/05/2021, Additional history exists Dilated Eye Exam 08/08/2022 08/08/2020 Depression Screening 10/29/2025 10/29/2024, 01/05/20 Hepatitis B Screening Completed 03/04/2001 , 2000, 2000 Varicella Vaccines Completed 08/17/2008, 08/08/2001 Influenza Vaccine Completed 10/06/2024, , 09/07/2014, Additional history exists Procedures Procedure Name Priority Date/Time Associated Diagnosis Comments POCT HEMOGLOBIN A1C Routine 11/29/2021 9 :27 AM PRODUCT COORDINATOR Type 2 diabetes mellitus without complication, with long-term current use of insulin ([facility]) ([facility]) POCT LIPID PANEL Routine 01/05/2021 3:21 PM PRODUCT COORDINATOR Type 2 diabetes mellitus with hyperlipidemia (CMS/[facility]) DIABETIC EYE EXAM Routine 08/08/2020 EGFR Routine 05/17/2020 6:43 AM CDT from Last 3 Months or Most Recently Relevant to Health Maintenance Results * POCT hemoglobin A1c (11/29/2021 9:27 AM PRODUCT COORDINATOR) Hemoglobin A1C, POC 7.1 Blood specimen (specimen) 11/29/2021 9:27 AM PRODUCT COORDINATOR Melinda Lawson NP POINT OF CARE TEST ORDERABLES F inal Result * POCT lipid panel (01/05/2021 3:21 PM PRODUCT COORDINATOR) Cholesterol, POC 162 mg/dL HDL, POC 25 mg/dL Triglycerides, POC 242 mg/dL LDL Cholesterol POC 89 mg/dL Chol/HDL Ratio, POC 6.4 Non-HDL Cholesterol, POC 137 mg/dL Capillary blood 01/05/2021 3 :21 PM PRODUCT COORDINATOR Melinda Lawson NP POINT OF CARE TEST ORDERABLES F inal Result * Diabetic Eye Exam (08/08/2020) [facility] Provider HEALTH MAINTENANCE Edited Result - Final * eGFR (05/17/2020 6:43 AM CDT) eGFR 122 mL/min/1.7 3 m2 [facility] ([facility]) Comment: Interpretive Data Reference Interval Normal >/= 90 mL/min/1.73m2 Mildly decreased* 60 - 89 mL/min/1.73m2 Mildly to moderately decreased 45 - 59 mL/min/1.73m2 Moderately to severely decreased 30 - 44 mL/min/1.73m2 Severely decreased 15 - 29 mL/min/1.73m2 Kidney Failure < 15 mL/min/1.73m2 *Relative to young adult level If -Maldivian multiply value by 1.16. 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
--- OUTSIDE RECORDS SUMMARY | 2025-01-05 17:22 | XMS_ITS | Clinical Summary ---
Author Organization [facility] Address [address] [place] [address] Phone Care Team Providers Care Center Aisle Cashier Name Role Phone Negrita Christie MD Primary Care Provider [phone] Meir Ibrahim MD Unavailable [phone] Allergies Active Allergy Reactions Criticality Noted Date Comments Canagliflozin Vomiting Low 05/24/2020 Vomits 10 minutes after taking medication Medications omeprazole (PRILOSEC) 20 MG CAPSULE DELAYED RELEASE TK 1 C PO D 6 9 Active QUEtiapine Fumarate 400 MG Tablet TK 2 TS PO QD HS 2 9 Active traZODone (DESYREL) 150 MG Tablet 200 mg nightly. 2 9 Active clonazePAM (KLONOPIN) 0.5 MG Tablet Take 0.5 mg by mouth 3 times daily. Active insulin lispro (HUMALOG) 100 UNIT/ML Solution by Subcutaneous route 3 times daily (after meals). Use as directed Active insulin glargine (LANTUS) 100 UNIT/ML Solution by Subcutaneous route every evening. Active METFORMIN HCL PO Take by mouth. Activ e gabapentin (NEURONTIN) 300 MG Capsule Take 300 mg by mouth 3 times daily. Active amoxicillin-cla vulanate (AUGMENTIN) 875-125 MG Tablet TAKE 1 TABLET BY MOUTH EVERY 12 HOURS 2 Active ciprofloxacin-d examethasone (CIPRODEX) 0.3-0.1 % Suspension USE 4 DROPS TWICE DAILY BOTH EARS FOR 10 DAYS 2 Active Dulaglutide (Trulicity) 3 MG/0.5ML Solution Pen-injector 3 mg by Subcutaneous route. 2 Active Empagliflozin (JARDIANCE) 10 MG Tablet Take 10 mg by mouth. 2 Active fluticasone (FLONASE) 50 MCG/ACT Suspension SHAKE LIQUID AND USE 2 SPRAYS IN EACH NOSTRIL DAILY 1 Active OneTouch Verio Strip USE TO TEST BLOOD SUGAR TWICE DAILY 2 Active Accu-Chek FastClix Lancets Misc TEST QID 0 Active levothyroxine (SYNTHROID) 25 MCG Tablet 1 Active cloNIDine (CATAPRES) 0.1 MG Tablet 3 Active hydrOXYzine (ATARAX) 25 MG Tablet Take 25 mg by mouth 3 times daily. 3 Active metFORMIN (GLUCOPHAGE) 1000 MG Tablet TAKE 1 TABLET BY MOUTH BEFORE BREAKFAST AND BEFORE DINNER 3 Active busPIRone (BUSPAR) 10 MG Tablet TAKE 2 TABLETS BY MOUTH THREE TIMES DAILY 3 Active Aripiprazole 30 MG Tablet 3 Active atorvastatin (LIPITOR) 40 MG Tablet TAKE 1/2 TABLET BY MOUTH DAILY 3 Active divalproex (DEPAKOTE) 250 MG Tablet Delayed Response Take 2 Tablets by mouth 2 times daily. 360 Tablet 3 4 Active Active Problems Problem Noted Date Diagnosed Date Morbid obesity due to excess calories 05/16/2020 Bipolar 1 disorder 09/16/2014 Developmental delay 09/16/2014 Overview (05/24/2020): Overview: Intellectually delayed Family History Medical History Relation Name Comments Diabetes Father Elevated Lipids Father Hypertension Father Hypertension Maternal Grandfather Diabetes Paternal Uncle Relation Name Status Comments Father Maternal Grandfather Paternal Uncle Social History Tobacco Use Types Packs/Day Years Used Date Smoking Tobacco: Never Smokeless Tobacco: Never Tobacco Cessation:Counseling Given: Not Answered Alcohol Use Standard Drinks/Week Comments Never 0 (1 standard drink = 0.6 oz pur e alcohol) AUDIT-C Answer Date Recorded Frequency of Alcohol Consumption Never 07/01/2019 Average Number of Drinks Not on file 019 Frequency of Binge Drinking Not on file 05/2019 Sex and Gender Information Value Date Recorded Sex Assigned at Not on file Legal Sex Male 8:52 PM CDT Gender Identity Not on file Sexual Orientation Not on file Last Filed Vital Signs Vital Sign Reading Time Taken Comments Blood Pressure 122/92 03/25/2023 3:03 PM CDT Pulse 70 03/25/2023 3:03 PM CDT Temperature 36.4 C (97.5 F) 03/25/2023 3:03 PM CDT Respiratory Rate 20 03/25/2023 3:03 PM CDT Oxygen Saturation 97% 03/25/2023 3:03 PM CDT Inhaled Oxygen Concentration - - Weight 152.4 kg (336 lb) 03/25/2023 3:03 PM CDT Height 175.3 cm (5' 9 ) 03/25/2023 3:03 PM CDT Body Mass Index 49.62 03/25/2023 3:03 PM CDT Plan of Treatment Health Maintenance Due Date Last Done Comments Hepatitis C Virus (HCV) Screening 2000 Human Papillomavirus (HPV) Immunization (2 - Male 3-dose series) 07/25/2017 06/27/2017 Influenza Immunization (#1) 2024 09/08/2014, 1 SARS-COV-2 Immunization (3 - season) 2024 05/01/2021, 04/08/2021 Respiratory Syncytial Virus (RSV) Immunization (Adult) (1 - 1-dose 75+ series) 2075 Hepatitis B Immunization Completed 001, 2000, 2000 Pneumococcal Immunization Combined Aged Out 09/24/2001, 03/04/2001, 2000, Additional history exists No longer eligible based on patient's age to complete this topic DTaP/Tdap/Td Immunization Discontinued 2010, 07/04/2005, 01/23/2002, Additional history exists TdaP Immunization Completed 06/20/2011 Meningococcal Immunization (ACWY) Completed 06/27/2017, 06/16/2014 Rotavirus Immunization Aged Out No lo nger eligible based on patient's age to complete this topic Insurance [place]ICA[place] MEDICARE C [employer] Care Teams Center Aisle Cashier Relationship Specialty Start Date End Date Negrita Christie MD [address] [place] [address] PCP - General Internal Medicine 08/17/21 Meir Ibrahim MD [address] [place] [address] Consulting Physician Neurology 03/25/23
--- NOTE | 2025-01-05 17:25 | ED.LOWEXIN ---
HPI - Extremity Injury (Lower) General Chief Complaint: Extremity Injury, Lower Stated Complaint: Fall Injury/Left Ankle Time Seen by Provider: 01/05/25 17:51 Source: patient and RN notes reviewed Mode of arrival: ambulatory Limitations: no limitations History of Present Illness HPI Narrative: 24-year-old male presents with concern for left ankle pain. Reports on Saturday he fell down concrete steps and rolled his ankle. He reports since then he has had swelling and bruising to the lateral ankle. He reports he has been taking ibuprofen, Tylenol, use an Anthony wrap and ice. He denies decreased strength, sensation, range of motion in the ankle, foot, or digit MD complaint: ankle injury Related Data Home Medications ?Medication ?Instructions ?Recorded ?Confirmed ?Last Taken ?Type divalproex 250 mg tablet,delayed 500 mg PO Q12H 11/02/19 01/05/25 Unknown History release omeprazole 20 mg capsule,delayed 20 mg PO DAILY 11/02/19 01/05/25 Unknown History release trazodone 100 mg tablet 200 mg PO HS 11/02/19 01/05/25 Unknown History aripiprazole 30 mg tablet 30 mg PO DAILY 03/29/23 01/05/25 Unknown History atorvastatin 40 mg tablet 40 mg PO DAILY 03/29/23 01/05/25 Unknown History clonidine HCl 0.1 mg tablet 1 mg PO TID 03/29/23 01/05/25 Unknown History empagliflozin 10 mg tablet 10 mg PO DAILY 03/29/23 01/05/25 Unknown History (Jardiance) gabapentin 300 mg capsule 300 mg PO TID 03/29/23 01/05/25 Unknown History hydroxyzine HCl 25 mg tablet 25 mg PO TID PRN Anxiety 03/29/23 01/05/25 Unknown History levothyroxine 25 mcg tablet 25 mcg PO DAILY 03/29/23 01/05/25 Unknown History metformin 1,000 mg tablet 1,000 mg PO BID 03/29/23 01/05/25 Unknown History buspirone 10 mg tablet 20 mg PO TID 07/21/24 01/05/25 Unknown History semaglutide 7 mg tablet (Rybelsus) mg PO 01/05/25 Unknown History Allergies Allergy/AdvReac Type Severity Reaction Status Date / Time No Known Allergies Allergy Verified 01/05/25 17:35 Review of Systems Review of Systems: CONSTITUTIONAL: Denies malaise, chills, sweats, or fever. SKIN: Denies rash or itching, open skin, laceration, abrasion, redness, warmth MUSCULOSKELETAL: Reports left ankle pain and swelling NEUROLOGIC: Denies numbness, weakness All systems reviewed & are unremarkable except as noted in HPI and below PMFSH Past Medical History Medical History Anxiety Depression Diabetes Surgical History Surgical History No pertinent past surgical history Family History Family History Mother Family history non-contributory Social History Social History Smoking status: Never smoker Substance use: never Living arrangements: with family Gender identity (if verbalized by the patient): Male Spiritual care concerns: No Comments At time of signature, agree with nursing past medical, surgical, social and family history. There is no relevant family history pertinent to the presenting complaint Exam Narrative: GENERAL: Well-appearing, well-nourished, and in no acute distress. HEAD: Normocephalic, atraumatic. EYES: PERRLA, conjunctivae clear NECK: Supple. CHEST: Speaks in full sentences. No respiratory distress. HEART: Regular rate and rhythm. Normal and equal peripheral pulses. EXTREMITIES: Left ankle, foot, digits have grossly normal strength and sensation, grossly normal range of motion. Moderate lateral ankle edema with mild ecchymosis. 5/5 strength with ankle in digit flexion and extension. Normal sensation with sensitivity to light touch and pain. Lateral ankle tenderness. No open wounds, no skin tenting, no devitalized tissue or atrophy, no trophic changes, no obvious deformity, alignment normal, nearby joints and structures intact. Distal pulses palpable and equal bilaterally, skin warm, dry, pink. Capillary refill less than 3 seconds. SKIN: Warm, dry, no rash. NEURO: Alert and oriented x3. PSYCH: Normal mood and affect Course Course Emergency Course: Patient is aware of diagnosis, understands and agrees to treatment plan. Anticipatory guidance given. Patient agrees to follow-up as directed and is aware of reasons to seek care at the emergency department. Portions of this record may have been created with voice recognition software Level of Care: Express Care Visit Vital Signs Vital signs: Reviewed. MDM - Extremity Injury (Lower) MDM Narrative Medical decision making narrative: Patients injury and pain is consistent with musculoskeletal etiology. No signs of neurological or vascular compromise on exam. Compartments and tissues are soft without signs of compartment syndrome. Pain is felt appropriate for further evaluation on an outpatient basis. Imaging Data My impression: Images reviewed, interpreted by radiologist, agree, see report. Radiologist's impression: HISTORY: INVERSION INJURY,LATERAL PAIN COMPARISON: None TECHNIQUE: 3 views of the left ankle were performed FINDINGS: No acute fracture or dislocation. Moderate lateral soft tissue swelling. The ankle mortise is preserved. Bone mineralization is age-appropriate. IMPRESSION: Soft tissue swelling without acute fracture. Critical Care Time Critical Care Time Critical Care Time: No Discharge Plan Discharge Clinical Impression: Ankle sprain and strain Patient Disposition: Home, Self-Care Condition: Stable Instructions: Ankle Sprain (ED) Additional Instructions: Avoid activities that cause pain until the pain subsides. Ice to the area 20-30 minutes 4-6 times a day Elevate above heart Elastic wrap as directed for comfort for the next 5-7 days Tylenol for lesser pain Ibuprofen regularly for the next 2-3 days for the inflammation Follow up with your primary care provider if the condition is not improving within 1 week. If the condition worsens with numbness, tingling, decrease sensation with weakness seek treatment in the emergency room immediately. Patient Language: Uzbek Prescriptions: No Action buspirone 10 mg tablet 20 mg PO TID fluticasone propionate [Flonase Allergy Relief] 50 mcg/actuation spray,suspension 2 spray intranasal DAILY Qty: 16 0RF Rx Instructions: administer into each nostril Rybelsus 7 mg tablet PO divalproex 250 mg Tablet,Delayed Release (Dr/Ec) 500 mg PO Q12H trazodone 100 mg Tablet 200 mg PO HS omeprazole 20 mg Capsule,Delayed Release(Dr/Ec) 20 mg PO DAILY atorvastatin 40 mg tablet 40 mg PO DAILY clonidine HCl 0.1 mg tablet 1 mg PO TID levothyroxine 25 mcg tablet 25 mcg PO DAILY gabapentin 300 mg capsule 300 mg PO TID hydroxyzine HCl 25 mg tablet 25 mg PO TID PRN (Reason: Anxiety) aripiprazole 30 mg tablet 30 mg PO DAILY Jardiance 10 mg tablet 10 mg PO DAILY metformin 1,000 mg tablet 1,000 mg PO BID Follow-up/Referrals: PHYSICIAN NOT ON STAFF,NONSTAFF [Primary Care Provider] - Time of Disposition: 17:59
[2025-01-05 17:27] VITALS: BP 134/83; PULSE 78; RESP 16; TEMP 36.5; O2SAT 99
== END 2025-01-05 18:04 | disposition home or self-care (01) ==
PROVIDERS: Emergency Provider Nurse Practitioner
DX: S93.402A Sprain of unspecified ligament of left ankle, initial encounter (principal); S96.912A Strain of unspecified muscle and tendon at ankle and foot level, left foot, initial encounter; W10.9XXA Fall (on) (from) unspecified stairs and steps, initial encounter; E11.9 Type 2 diabetes mellitus without complications; Z79.84 Long term (current) use of oral hypoglycemic drugs; F41.9 Anxiety disorder, unspecified; F32.A Depression, unspecified
CPT/HCPCS: 73610; 99213; G0463

== ENCOUNTER 2025-07-22 17:54 | Emergency (ER) | payer MEDICARE, MEDICAID, SELFPAY ==
[2025-07-22 17:57] VITALS: BP 151/90; PULSE 77; RESP 20; TEMP 36.9; O2SAT 100
--- OUTSIDE RECORDS SUMMARY | 2025-07-22 17:59 | XMS_ITS | Encounter Summary ---
Author Organization [facility] Healthcare Address [address] [place] [address] Care Team Providers Care Ent Consultant Name Role Phone RennyMelinda Kye SENSOR OPERATOR Unavailable [phone] Baldemar Landry MD Primary Care Provi billy Encounter Details Date Type Department Care Team (Late st Contact Info) Description 06/02/2025 Results Follow-Up [facility] Primary Care at [address] [place] [address] Baldemar Landry MD [address] [place] [address] Hemoglobin A1c Social History Tobacco Use Types Packs/Day Years [...] on file 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
--- OUTSIDE RECORDS SUMMARY | 2025-07-22 17:59 | XMS_ITS | Clinical Summary ---
Author Organization [facility] Address [address] [place] [address] Phone Care Team Providers Care Sword Swallower Name Role Phone Negrita Christie MD Primary Care Provider [phone] Meir Ibrahim MD Unavailable [phone] Jenny Schneider APRN, [facility] Unavailable [phone] Allergies Active Allergy Reactions Criticality Noted Date [...] mg by mouth 3 times daily. Active gabapentin (NEURONTIN) 300 MG Capsule Take 300 mg by mouth 3 times daily. Active ciprofloxacin-d examethasone (CIPRODEX) 0.3-0.1 % Suspension USE 4 DROPS TWICE DAILY BOTH EARS FOR 10 DAYS 2 Active Empagliflozin (JARDIANCE) 10 MG Tablet Take 10 mg by mouth. 2 Active OneTouch Verio Strip USE TO TEST [...] 1/2 TABLET BY MOUTH DAILY 3 Active Semaglutide 14 MG Tablet Take 14 mg by mouth. 5 09/05/20 25 Active BuPROPion HCl 200 MG TABLET SR 12 HR Take 200 mg by mouth. Active divalproex (DEPAKOTE) 250 MG Tablet Delayed ResponseIndicat ions:Seizures (HCC) Take 2 Tablets by mouth 2 times daily. 360 Tablet 3 5 Active Active Problems Problem Noted Date Diagnosed Date Seizures 06/18/2025 Morbid obesity due to excess calories 05/16/2020 Bipolar 1 disorder 09/16/2014 Developmental delay 09/16/2014 Overview (05/24/2020): Overview: Intellectually delayed Encounters Date Type Department Care Team Description 06/25/2025 Telephone [facility] - [facility]rology - [place] [address] [place] [address] Jenny Schneider APRN, [facility] 06/23/2025 Telephone [facility] [place] [address] [place] [address] Jenny Schneider APRN, [facility] 06/18/2025 3:30 PM CDT [facility] [place] [address] [place] [address] Jenny Schneider APRN, [facility] Seizures (HCC) (Primary Dx); Bipolar 1 disorder (HCC) 06/18/2025 Travel 06/16/2025 Travel from Last 3 Months Family History Medical History Relation Name Comments [...] 3:03 PM CDT Height 175.3 cm (5' 9) 03/25/2023 3:03 PM CDT Body Mass Index 49.62 03/25/2023 3:03 PM CDT Plan of Treatment Health Maintenance Due Date Last Done Comments Hepatitis C Virus (HCV) Screening 2000 Human Papillomavirus (HPV) Immunization (2 - Male 3-dose series) 07/25/2017 06/27/2017 SARS-COV-2 Immunization ( season) 2024 05/01/2021, 04/08/2021 Influenza Immunization (#1) 07/26/202509/25, 09/08/2014, 09/07/2014 Respiratory Syncytial Virus (RSV) Immunization (Adult) (1 [...] on patient's age to complete this topic Procedures Procedure Name Priority Date/Time Associated Diagnosis Comments VALPROIC ACID (DEPAKENE) 2025 12:00 AM CDT VALPROIC ACID (DEPAKENE) 2025 12:00 AM CDT from Last 3 Months Results * VALPROIC ACID (DEPAKENE) (2025 12:00 AM CDT) Only the most recent of2 resultswithin the time period is included. 2025 us Meir Ibrahim MD CHEMISTRY ORDERABLES Final R esult SCAN from Last 3 Months Insurance MEDICAID [place] MEDICARE C [employer] Care Teams Sword Swallower Relationship Specialty Start Date End Date Negrita Christie MD [address] [facility] [place] [address] PCP - General Internal Medicine 08/17/21 Meir Ibrahim MD [address] [place] [address] Consulting Physician Neurology 03/25/23 Jenny Schneider, POULTRY SLAUGHTERER, [facility] [address] [place] [address] Nurse Practitioner Advanced Practice Nurse 06/21/25
--- OUTSIDE RECORDS SUMMARY | 2025-07-22 17:59 | XMS_ITS | Clinical Summary ---
Author Organization [facility] Address [address] [place] [address] Care Team Providers Care Logistics Associate Name Role Phone Yoselyn Oseguera MD Primary Care Provider Source Comments [facility],non-owned Affiliates and Associated Physician Practices is amultiple site organization consisting of ambulatory clinics and hospital sitesin [place], [place], [place] and [place]. This disclosure is being madepursuant to the Care Everywhere program and may not contain all information available regarding this patient. Last updated 18.[facility] Allergies No known active allergies Medications * Be aware that medications may not be up to date on this document. Alwaysverify current medications with the patient. polyethylene glycol 3350 (MIRALAX) packet Use 1 [...] be different from the original. Mom Olegario) [phone]. 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 Gender Identity Not on file Sexual Orientation [...] 10:07 AM CDT Height 172 cm (5' 7.72) 03/26/2017 12:56 PM CDT Body Mass Index - - Plan of Treatment Health Maintenance Due Date Last Done Comments HIV SCREENING 2015 HPV VACCINE (1 - Male 3-dose series) 2015 HEPATITIS C SCREENING 06/20/2018 DTAP/TDAP/TD VACCINES (1 - Tdap) 2019 HEPATITIS B VACCINE (1 of 3 - 19+ 3-dose series) 2019 COVID-19 VACCINE (2023-2 5 season) 2024 INFLUENZA VACCINE (#1) 2025 ZOSTER VACCINE (1 of 2) 2050 HIB VACCINE Aged Out No longer eligi ble based on patient's age to complete this topic MENINGOCOCCAL (Group B) VACC INE SHARED DECISION-MAKING Aged Out No longer eligibl e based on patient's age to complete this topic MENINGOCOCCAL GROUPS A/C/Y/W VACCINE Aged Out No longer eligible b ased on patient's age to complete this topic PNEUMOCOCCAL VACCINE Aged Out No long er eligible based on patient's age to complete this topic Insurance [facility] [employer] [facility] [address] [facility] Care Teams Logistics Associate Relationship Specialty Start Date End Date Yoselyn Oseguera MD [address] [place] [phone] PCP - General Pediatrics 02/04/17
--- OUTSIDE RECORDS SUMMARY | 2025-07-22 17:59 | XMS_ITS | Encounter Summary ---
Author Organization [facility] Healthcare Address [address] [place] [address] Care Team Providers Care Letterset Press Set Up Operator Name Role Phone Melinda Lawson MICROBIOLOGY TECHNICIAN Unavailable [phone] Baldemar Landry MD Primary Care Provi billy Reason for Visit * Reason Comments Chart Review [facility] A1C Encounter Details Date Type Department Care Team (Late st Contact Info) Description 07/22/2025 ACO Quality [facility] Accountable Care Organization [address] [place] [address] Rica Michaud MA [address] [facility] [address] [address] Social History Tobacco Use Types Packs/Day Years Used Date Smoking Tobacco: Never Smokeless Tobacco: Never Alcohol Use Standard Drinks/Week Comments No 0 (1 standard drink = 0.6 oz pur e alcohol) PHQ-2 Answer Date Recorded PHQ-2 Total Score (If total score is 3 or more points, staff should administer the PHQ-9) 0 06/08/2025 PHQ-9 Answer Date Recorded PHQ-9 Total Score 0 06/08/2025 Sex and Gender Information Value Date Recorded Sex Assigned at Not on file 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 Upon review, pt last A1c was 7.0 on 06/01/2025. Gap closed in portal. Rica Michaud CMA Patient Quality Diamond Sander [facility] [phone] documented in this encounter Plan of Treatment Not on file documented as of this encounter Visit Diagnoses Not on filedocumented in this encounter Care Teams Letterset Press Set Up Operator Relationship Specialty Start Date End Date Baldemar Landry MD [address] [address] PCP - General Family Practice 10/29/24 Melinda Lawson, ADDIE Nurse Practitioner Endocrinology Diabetes & Metabolism 09/26/20 documented as of this encounter
--- OUTSIDE RECORDS SUMMARY | 2025-07-22 17:59 | XMS_ITS | Clinical Summary ---
Author Organization [facility] Address [address] [place] [address] Care Team Providers [facility] Custodian Name Role Phone Melinda Lawson NP Unavailable [phone] Baldemar Landry MD Primary Care Provi billy Allergies Active Allergy Reactions Criticality Noted Date Comments Canagliflozin Vomiting Low 05/24/2020 Vomits 10 minutes after taking medication Medications traZODone (DESYREL) 100 mg tabletIndicati ons:major depressive disorder Take 2 tablets (200 mg total) by mouth 2 (two) times a day Active divalproex DR (DEPAKOTE) 250 mg EC tabletIndicati ons:Bipolar Disorder Take 1 tablet (250 mg total) by mouth 2 (two) times a day Takes at 0800 and 1600 Active gabapentin (NEURONTIN) 300 mg capsuleIndicat ions:anger Take 1 capsule (300 mg total) by mouth 3 (three) times a day Takes at 0800, 1200, 1600 Active clonazePAM (KlonoPIN) 0.5 mg tablet Take 1 tablet (0.5 mg total) by mouth daily Takes at noon 05/15/20 20 Active omeprazole (PriLOSEC) 20 mg capsule Take 1 capsule (20 mg total) by mouth daily Active TechLITE Pen Needle 32 gauge x 1/4 needle 05/17/20 20 Active alcohol swabs pads, medicatedIndic ations:New onset type 2 diabetes mellitus (HCC) Apply 1 each topically 2 (two) times a day 120 each 3 05/19/20 20 Active lancing device with lancets kit Test blood sugar 4 times/day 100 each 11 05/24/20 20 Active Accu-Chek Fastclix Lancet Drum misc TEST QID 06/18/20 20 Active fluticasone propionate (FLONASE) 50 mcg/actuation nasal spray SHAKE LIQUID AND USE 2 SPRAYS IN EACH NOSTRIL DAILY 03/16/20 21 Active ARIPiprazole (ABILIFY) 30 mg tablet Take 0.5 tablets (15 mg total) by mouth 2 (two) times a day 03/01/20 21 Active blood-glucose meter (Reveal Blood Glucose Meter) kit Use blood glucose meter to test blood sugars twice a day. 1 each 1 04/10/20 21 Active metFORMIN (GLUCOPHAGE) 1,000 mg tabletIndicati ons:New onset type 2 diabetes mellitus (HCC) TAKE 1 TABLET(1000 MG) BY MOUTH TWICE DAILY WITH MEALS 180 tablet 3 08/01/20 21 Active busPIRone (BUSPAR) 10 mg tablet 11/27/19 22 Active albuterol HFA (PROVENTIL HFA,VENTOLIN HFA,PROAIR HFA) 90 mcg/actuation inhaler INHALE 2 PUFFS BY MOUTH EVERY 4 TO 6 HOURS NEEDED FOR COUGH OR SHORTNESS OF BREATH 08/07/20 24 Active cetirizine (ZyrTEC) 10 mg tablet TAKE 1 TABLET BY MOUTH DAILY NEEDED FOR ALLERGY SYMPTOMS 07/22/20 24 Active hydrOXYzine (ATARAX) 25 mg tablet Take 1 tablet (25 mg total) by mouth 3 (three) times a day 03/15/20 23 Active buPROPion SR (WELLBUTRIN SR) 200 mg 12 hr tablet Take 1 tablet (200 mg total) by mouth 2 (two) times a day Active levothyroxine (SYNTHROID) 50 mcg tablet Take 1 tablet (50 mcg total) by mouth daily 90 tablet 3 01/08/20 25 026 Active empagliflozin (JARDIANCE) 10 mg tabletIndicati ons:type 2 diabetes mellitus Take 1 tablet (10 mg total) by mouth lab support tech before breakfast [id number] 90 tablet 3 01/22/20 25 026 Active semaglutide (RYBELSUS) 14 mg tabletIndicati ons:Type 2 diabetes mellitus without complication, without long-term current use of insulin (HCC),Morbid obesity with BMI of 40.0-44.9, adult (HCC) Take 1 tablet (14 mg total) by mouth lab support tech before breakfast 30 tablet 5 03/09/20 25 025 Active atorvastatin (LIPITOR) 20 mg tabletIndicati ons:Hyperlipid emia associated with type 2 diabetes mellitus (HCC) Take 1 tablet (20 mg total) by mouth daily 90 tablet 1 04/20/20 25 025 Active blood glucose diagnostic (OneTouch Verio test strips) strip USE TO TEST BLOOD SUGAR TWICE DAILY 200 strip 11 05/20/20 25 Active cloNIDine (CATAPRES) 0.1 mg tablet TAKE 1 TABLET BY MOUTH THREE TIMES DAILY FOR ANXIETY OR AGITATION 04/18/20 25 Active ondansetron (ZOFRAN) 8 mg tablet TAKE 1 TABLET(8 MG) BY MOUTH DAILY NEEDED FOR NAUSEA OR VOMITING 30 tablet 07/19/20 25 Active ondansetron (ZOFRAN) 8 mg tablet Take 1 tablet (8 mg total) by mouth daily as needed for nausea or vomiting 30 tablet 06/14/20 25 025 Discontinued Active Problems Problem Noted Date Diagnosed Date Nausea and vomiting 06/08/2025 Assessment & Plan (06/08/2025 12:43 PM CDT): Orders: CT Abdomen Pelvis W Contrast; Future Comprehensive metabolic panel; Future CBC with auto differential; Future Lipase; Future Right upper quadrant pain 06/08/2025 Assessment & Plan (06/08/2025 12:43 PM CDT): Orders: CT Abdomen Pelvis W Contrast; Future Comprehensive metabolic panel; Future CBC with auto differential; Future Lipase; Future Morbid obesity with BMI of 40.0-44.9, adult 02/23 Assessment & Plan (03/09/2025 4:25 PM CDT): Orders: semaglutide (RYBELSUS) 14 mg tablet; Take 1 tablet (14 mg total) by mouth lab support tech before breakfast Encounter for other administrative examinations 12/15/2024 Type 2 diabetes mellitus wit hout complication, without long-term current use of insulin 10/29/2024 Assessment & Plan (06/08/2025 12:43 PM CDT): Orders: Hemoglobin A1c; Future Assessment & Plan (03/09/2025 4:25 PM CDT): Orders: semaglutide (RYBELSUS) 14 mg tablet; Take 1 tablet (14 mg total) by mouth lab support tech before breakfast Hemoglobin A1c; Future Seizure disorder 10/29/2024 Hyperlipidemia associated with type 2 diabetes libertad noriega 09/09/2020 Assessment & Plan (03/09/2025 4:25 PM CDT): Well-controlled on atorvastatin 20 mg per day Assessment & Plan (11/29/2021 10:02 AM PALLET STONE INSERTER): This is a chronic condition which is [...] daily. Assessment & Plan (01/05/2021 3:15 PM PALLET STONE INSERTER): This is a chronic condition which is improving, but not at goal. Reviewed labs. Encouraged to eat healthy, include fresh fruits and vegetables daily and avoid eating fried foods more than once per week. Please take medications as prescribed. Increase Atorvastatin from 20mg to 40 mg daily. Take 2 tablets until current prescription is gone and then medicinal plant picker atorvastatin 40 mg at the pharmacy Labs have decreased from 106 to 89 but, it needs be under 70 for people with diabetes. Encouraged weight loss and exercise. Assessment & Plan (11/03/2020 4:02 PM PALLET STONE INSERTER): This is a chronic condition which is [...] 6 lb weight loss by next visit. Convulsions 05/21/2016 Overview (10/29/2024): Eugene has had [...] since Epilepsy syndrome: Etiology: EEG Information at [facility]: EEG is abnormal with evidence of [...] (10/29/2024): Intellectually delayed Hypernatremia 09/15/2014 Fecal impaction 06/29/2013 Overview (10/29/2024): 13 y/o male with [...] Problem Noted Date Diagnosed Date Resolved Date Class 2 severe obesity with serious comorbidity and body mass index (BMI) of 38.0 to 38.9 in adult 10/29/2024 03/09/2025 Dehydration 05/18/2020 05/19/2020 Type 2 diabetes mellitus wit hout complication, with long-term current use of insulin 05/16/2020 10/29/2024 Overview (04/05/2021): Diagnosed April 2020 on insulin until 04/14. Off insulin Assessment & Plan (11/29/2021 10:02 AM PALLET STONE INSERTER): This is a chronic condition which is [...] dilated eye exam was April 2020 at [facility] in [place] Monofilament foot exam completed, protective senses intact [...] No history of macrovascular disease - CVA, [place]. Encouraged to see dietitian for weight loss- [...] dilated eye exam was April 2020 at [facility] in [place] Monofilament foot exam completed, [...] No history of macrovascular disease - CVA, [place]. Assessment & Plan (01/05/2021 3:29 PM PALLET STONE INSERTER): This is a chronic condition which is worsening, but still at goal of less than 7% Personally reviewed labs, A1c-6.7, at goal Medication- Continue on Metformin 1000mg twice daily Lantus 20 units daily. Add Trulicity 0.75 mg weekly. Both patient and grandmother denied history of pancreatitis Monitor blood sugar 2 times a day. last dilated eye exam was April/2020 at [facility] in [place] Monofilament foot exam completed, protective senses intact Urine microalbumin/creatinine ratio - less than 30 on 8/20. normal. At goal of less than 30 with clonidine 0.1mg twice daily. Kidney function eGRF-122, BUN- 10, creatinine- 0.91. Normal kidney function. BP today-130/80, currently not on BRIDGET/ARB. At goal of less than 140/80 on Clonidine 0.1mg twice daily. Managed by PCP. Assessment & Plan (11/03/2020 4:04 PM PALLET STONE INSERTER): This is a chronic condition which is [...] last dilated eye exam was April/2020 at [facility] in [place] Monofilament foot exam completed, protective senses intact Urine microalbumin/creatinine ratio - normal Kidney function eGRF-122, BUN- 10, creatinine- 0.91. Normal kidney function BP today-128/76, currently not on BRIDGET/ARB Cholesterol 217 HDL - 39 LDL- 146 Triglycerides- 183 - atorvastatin 20 mg po daily. No history of macrovascular disease - CVA, [place]. Encouraged weight loss and exercise. Assessment & [...] last dilated eye exam was April/2020 at [facility] in [place] Monofilament foot exam completed, protective senses intact Urine microalbumin/creatinine ratio - normal Kidney function eGRF-122, BUN- 10, creatinine- 0.91 BP today-130/74, currently not on BRIDGET/ARB Cholesterol 217 HDL - 39 LDL- 146 Triglycerides- 183 - atorvastatin 20 mg po daily. No history of macrovascular disease - CVA, [place]. Assessment & Plan (06/30/2020 10:16 AM CDT): [...] last dilated eye exam was April/2020 at [facility] in [place] Monofilament foot exam completed, protective senses intact Urine microalbumin/creatinine ratio - normal Kidney function eGRF-122, BUN- 10, creatinine- 0.91 BP today-120/80, currently not on BRIDGET/ARB Lipid panel ordered today , currently not on a statin No history of macrovascular disease - CVA, [place]. Assessment & Plan (05/19/2020 11:33 AM CDT): [...] No history of macrovascular disease - CVA, [place]. TSH- 264 C-peptide and betahydroxybutrate were completed while he was hospitalized with normal results. Morbid obesity due to excess calories 05/16/2020 03/09/2025 Assessment & Plan (09/09/2020 10:12 AM CDT): [...] hot dog with small amount of catsup. Hyponatremia 05/19/2020 Diabetic acidosis without coma 07/06/2020 Encounters Date Type Department Care Team Description 07/22/2025 ACO Quality [facility] Accountable Care Organization [address] [place] [id number] Rica Michaud MA 06/14/2025 Orders Only [facility] Medical Group Primary Care at [address] [phone] Cheyenne Meyer NP 06/08/2025 12:25 PM CDT Lab [address] [phone] Nausea and vomiting, unspecified vomiting type; Right upper quadrant pain 06/08/2025 12:21 PM CDT - 06/08/2025 11:59 PM CDT Hospital Encounter [facility] [address] [place] [phone] Nausea and vomiting, unspecified vomiting type; Right upper quadrant pain Discharge Disposition: Discharge to home or self care 06/08/2025 11:45 AM CDT Office Visit [facility] Medical [facility] Primary Care at [address] [phone] Baldemar Landry MD Nausea and vomiting, unspecified vomiting type (Primary Dx); Right upper quadrant pain; Type 2 diabetes mellitus without complication, without long-term current use of insulin (HCC) 06/08/2025 Results Follow-Up [facility] Medical [facility] Primary Care at [address] [phone] Baldemar Landry MD Lipase, CBC with auto differential, Comprehensive metabolic panel, Additional followed-up results: 3 06/02/2025 Results Follow-Up [facility] Medical [facility] Primary Care at [address] [phone] Baldemar Landry MD Hemoglobin A1c 06/01/2025 12:10 PM CDT Lab [facility] - Outpatient Center at [address] [address] Type 2 diabetes mellitus without complication, without long-term current use of insulin (HCC) from Last 3 Months Immunizations Immunization Administration Dates Next Due DTaP 07/04/2005, 2,03/04/2001,11/29,2000 DTaP / HiB 2000 HPV9 06/27/2017 Hep A, Pediatric 07/06/2015,06/16/2014 Hep B, Adolescent or Pediatric 03/04/2001,1999,2000 HiB 09/24/2001, 1,2000,08/26 Hib (HbOC) 03/04/2001,2000 IPV 07/04/2005, 2,2000,08/26 Influenza, Live, Intranasal, Quadrivalent 09/08/2014,09/07/2014 Influenza, Split 08/17/2010,10/07/2009, 8 Influenza, Unspecified 10/06/2024,2022(Deferred: Patient Refused),09/08/2023(Deferred: Patient Refused),09/03/2023(Deferred: Patient Refused) MMR 07/04/2005,09/24/2001 Meningococcal Conjugate (Menveo) [...] on file Legal Sex Male 11:28 PM PALLET STONE INSERTER Gender Identity Not on file Sexual Orientation Not on file Obstetrics History Last Filed Vital Signs Vital Sign Reading Time Taken Comments Blood Pressure 114/72 06/08/2025 10:42 AM CDT Pulse 100 06/08/2025 10:42 AM CDT Temperature 36.8 C (98.2 F) 06/08/2025 10:42 AM CDT Respiratory Rate 21 06/08/2025 10:42 AM CDT Oxygen Saturation 95% 06/08/2025 10:42 AM CDT Inhaled Oxygen Concentration - - Weight 137 kg (302 lb) 06/08/2025 10:42 AM CDT Height 185.4 cm (6' 0.99) 06/08/2025 10:42 AM C DT Body Mass Index 39.85 06/08/2025 10:42 AM CDT Plan of Treatment Health Maintenance Due Date Last Done Comments Hepatitis C Screening 2000 HPV Vaccines (2 - Male 3-dose series) 07/25/2017 06/27/2017 Regular Well Visit/Exam 18-64 2018 Foot Exam 05/19/2021 05/19/2020 DTaP/Tdap/Td Vaccine (7 - Td or Tdap) 06/20/2021 06/20/2011, 07/04/2005, 01/23/2002, Additional history exists Dilated Eye Exam 08/08/2022 08/08/2020 Covid-19 Vaccine ( season) 2024 05/01/2021, 04/08/2021 Influenza Vaccine (#1) 2025 , 09/08/2014, 09/07/2014, Additional history exists Hemoglobin A1C 12/02/2025 06/01/2025, 01/24, 11/29/2021, Additional history exists Albumin Creatinine Ratio, Urine 02/12/2026 02/12/2025 Lipid Panel 02/12/2026 02/12/2025, 0211/2020, 08/17/2020, Additional history exists Pneumococcal vaccine <65 (1 of 1 - PPSV23, PCV20, or PCV21) 02/22/2026 09/24/2001, 03/04/2001, 2000, Additional history exists Postponed from 2006 (Patient declined, but will receive in the future) Depression Screening 06/08/2026 06/08/2025, 06/08/2025, 10/29/2024, Additional history exists eGFR 06/08/2026 06/08/2025, 03/2 11/2024, 05/17/2020, Additional history exists Hepatitis B Screening Completed 03/04/2001 , 2000, 2000 Varicella Vaccines Completed 08/17/2008, 08/08/2001 Procedures Procedure Name Priority Date/Time Associated Diagnosis Comments CT ABDOMEN PELVIS W CONTRAST Schedule DARCI, Read DARCI (Appt Today, Awaiting Results) 06/08/2025 2:01 PM CDT Nausea and vomiting, unspecified vomiting type Right upper quadrant pain EGFR STAT 06/08/2025 12:32 PM CDT Nausea and vomiting, unspecified vomiting type Right upper quadrant pain DIFFERENTIAL AUTO STAT 06/08/2025 12: 32 PM CDT Nausea and vomiting, unspecified vomiting type Right upper quadrant pain COMPREHENSIVE METABOLIC PANEL STAT 06/08/2025 12:32 PM CDT Nausea and vomiting, unspecified vomiting type Right upper quadrant pain CBC WITH AUTO DIFFERENTIAL STAT 06/08/2025 12:32 PM CDT Nausea and vomiting, unspecified vomiting type Right upper quadrant pain LIPASE STAT 06/08/2025 12:32 PM CDT Nausea and vomiting, unspecified vomiting type Right upper quadrant pain HEMOGLOBIN A1C Routine 06/01/2025 12:01 PM CDT Type 2 diabetes mellitus without complication, without long-term current use of insulin (HCC) LIPID PANEL Routine 02/12/2025 11:52 AM CDT Hyperlipidemia associated with type 2 diabetes mellitus (HCC) ALBUMIN CREATININE RATIO, URINE Routine 02/12/2025 11:52 AM CDT Type 2 diabetes mellitus without complication, without long-term current use of insulin (HCC) DIABETIC EYE EXAM Routine 08/08/2020 from Last 3 Months or Most Recently Relevant to Health Maintenance Results * CT Abdomen Pelvis W Contrast (06/08/2025 2:01 PM CDT) Anatomical Region Laterality Modality Body N/A Computed Tomogra phy 06/09/2025 8:15 PM CDT Narrative 06/09/2025 8:19 PM CDT EXAM DESCRIPTION: CT ABDOMEN PELVIS W CONTRAST REASON FOR STUDY: RUQ abdominal pain, nausea/vomiting Vomiting x 2 weeks, unable to hold breath during exam, no surgical hx. TECHNIQUE: CT scan of the abdomen and pelvis performed with intravenous and with oral contrast using helical scanning technique with dynamic intravenous contrast injection. Reconstructed coronal and sagittal MPR images reviewed. All images stored on PACS. Automated exposure control was used as a dose optimization technique for this examination. CONTRAST TYPE/DOSE: 100mL of IOVERSOL 350 MG IODINE/ML INTRAVENOUS SYRINGE injected via intravenous COMPARISON: None FINDINGS: LOWER CHEST: No significant pulmonary abnormalities. No effusion. LIVER: Decreased attenuation as seen with fibrofatty changes. GALLBLADDER: No stones identified. No wall thickening or inflammatory changes. BILE DUCTS: No intrahepatic or extrahepatic ductal dilatation. SPLEEN: Enlarged at 15.4 cm. PANCREAS: No identified cystic or solid masses. No significant calcifications. No adjacent inflammation or peripancreatic fluid collections. Pancreatic duct not dilated. ADRENALS: Normal. KIDNEYS/URINARY TRACT: No identified significant cystic or solid masses. No visualized stones. No hydronephrosis or hydroureter. Symmetric enhancement. Urinary bladder is unremarkable. GI: No dilated bowel loops. No obvious wall thickening. Normal appendix. No significant diverticular disease. PERITONEUM: No ascites or free air. RETROPERITONEUM: No mass or adenopathy. REPRODUCTIVE: No significant abnormality. VASCULATURE: No abdominal aortic aneurysm. MUSCULOSKELETAL: No significant abnormality. OTHER: Small periumbilical hernia containing only fat. Small left inguinal hernia containing only fat. IMPRESSION: 1. Fatty infiltration of the liver. 2. Splenomegaly. 3. Small periumbilical hernia containing only fat. Small left inguinal hernia containing only fat. THIS IS AN ELECTRONICALLY VERIFIED FINAL REPORT 06/09/2025 8:19 PM - Electronically signed by Dm Colindres M.D. KT: ROMERO Report ID: [id number] Reading Location: [id number] Procedure Note Dm Colindres MD - 06/09/2025 EXAM DESCRIPTION: CT ABDOMEN PELVIS W CONTRAST REASON FOR STUDY: RUQ abdominal pain, nausea/vomiting Vomiting x 2 weeks, unable to hold breath during exam, no surgical hx. TECHNIQUE: CT scan of the abdomen and pelvis performed with intravenousand with oral contrast using helical scanning technique with dynamicintravenous contrast injection. Reconstructed coronal and sagittal MPR imagesreviewed. All images stored on PACS. Automated exposure control was used as a dose optimization technique for this examination. CONTRAST TYPE/DOSE: 100mL of IOVERSOL 350 MG IODINE/ML INTRAVENOUSSYRINGE injected via intravenous COMPARISON: None FINDINGS: LOWER CHEST: No significant pulmonary abnormalities. No effusion. LIVER: Decreased attenuation as seen with fibrofatty changes. GALLBLADDER: No stones identified. No wall thickening or inflammatory changes. BILE DUCTS: No intrahepatic or extrahepatic ductal dilatation. SPLEEN: Enlarged at 15.4 cm. PANCREAS: No identified cystic or solid masses. No significant calcifications. No adjacent inflammation or peripancreatic fluidcollections. Pancreatic duct not dilated. ADRENALS: Normal. KIDNEYS/URINARY TRACT: No identified significant cystic or solid masses.No visualized stones. No hydronephrosis or hydroureter. Symmetricenhancement. Urinary bladder is unremarkable. GI: No dilated bowel loops. No obvious wall thickening. Normalappendix. No significant diverticular disease. PERITONEUM: No ascites or free air. RETROPERITONEUM: No mass or adenopathy. REPRODUCTIVE: No significant abnormality. VASCULATURE: No abdominal aortic aneurysm. MUSCULOSKELETAL: No significant abnormality. OTHER: Small periumbilical hernia containing only fat. Small leftinguinal hernia containing only fat. IMPRESSION: 1. Fatty infiltration of the liver. 2. Splenomegaly. 3. Small periumbilical hernia containing only fat. Small left inguinal hernia containing only fat. THIS IS AN ELECTRONICALLY VERIFIED FINAL REPORT 06/09/2025 8:19 PM - Electronically signed by Dm Colindres M.D. KT: ROMERO Report ID: [id number] Reading Location: [id number] Baldemar Landry MD IMG CT PROCEDURES F inal Result * eGFR (06/08/2025 12:32 PM CDT) eGFR >90 >=60 mL/min/1. 73 m2 Comment: Interpretive Data Reference Interval Normal >/= 90 mL/min/1.73m2 Mildly decreased* 60 - 89 mL/min/1.73m2 Mildly to moderately decreased 45 - 59 mL/min/1.73m2 Moderately to severely decreased 30 - 44 mL/min/1.73m2 Severely decreased 15 - 29 mL/min/1.73m2 Kidney Failure < 15 mL/min/1.73m2 *Relative to young adult level Estimated glomerular filtration rate is determined by the 2020 CKD-EPI equation recommended by the National Kid[employer] (A Unifying Approach to GFR Estimation: Recommendations of the NKF-ASK Task Force on Reassessing the Inclusion of Race in Diagnosing Kidney Disease, JASN 2020). The CKD-EPI equation should not be used for patients with unstable renal function and has not been validated in children and those over 70. Current interpretive data was last reviewed 2021. Blood 06/08/2025 12:3 2 PM CDT 06/08/2025 12:57 PM CDT Baldemar Landry MD LAB BLOOD ORDERABLE S Final Result [facility] ([place] Department [place] [address] * (ABNORMAL) Differential, auto (06/08/2025 12:32 PM CDT) Neutrophil abs 3.88 1.50 - 6.50 K/cumm Imm gran abs 0.01 0.00 - 0.10 K/cumm [facility] ([facility]) Lymphocyte abs 3.33(H) 0.80 - 3.30 K/cumm [facility] ([place]) Monocyte abs 0.84(H) 0.20 - 0.80 K/cumm [facility] ([place]) Eosinophil abs 0.07 0.00 - 0.50 K/cumm [facility] ([place]) Basophil abs 0.03 0.00 - 0.10 K/cumm [facility] ([place]) Neutrophil pct 47.5 % [facility] ([place]) Comment: Interpretive Data Percent cell count reference ranges are not reported, since discordance with absolute values may lead to misinterpretation of CBC data. Current Interpretive Data was last revised on 2018. Imm gran pct 0.1 % [facility] ([place]) Comment: Interpretive Data Percent cell count reference ranges are not reported, since discordance with absolute values may lead to misinterpretation of CBC data. Current Interpretive Data was last revised on 2018. Lymphocyte pct 40.8 % [facility] ([place]) Comment: Interpretive Data Percent cell count reference ranges are not reported, since discordance with absolute values may lead to misinterpretation of CBC data. Current Interpretive Data was last revised on 2018. Monocyte pct 10.3 % [facility] ([place]) Comment: Interpretive Data Percent cell count reference ranges are not reported, since discordance with absolute values may lead to misinterpretation of CBC data. Current Interpretive Data was last revised on 2018. Eosinophil pct 0.9 % [facility] ([place]) Comment: Interpretive Data Percent cell count reference ranges are not reported, since discordance with absolute values may lead to misinterpretation of CBC data. Current Interpretive Data was last revised on 2018. Basophil pct 0.4 % [facility] ([place]) Comment: Interpretive Data Percent cell count reference ranges are not reported, since discordance with absolute values may lead to misinterpretation of CBC data. Current Interpretive Data was last revised on 2018. Blood 06/08/2025 12:3 2 PM CDT 06/08/2025 12:57 PM CDT us Baldemar Landry MD LAB BLOOD ORDERABLE S Final Result [facility] ([facility]) [facility] Department [place] [address] * (ABNORMAL) CBC with auto differential (06/08/2025 12:32 PM CDT) WBC 8.16 3.80 - 9.90 K/cumm Hgb 17.6(H) 13.0 - 17.5 g/dL [facility] ([place]) Hct 50.8(H) 38.9 - 50.3 % [facility] ([place]) Plt 224 150 - 400 K/cumm [facility] ([place]) MPV 11.5 9.1 - 12.3 fL [facility] ([place]) RBC 5.89(H) 4.30 - 5.80 M/cumm [facility] ([place]) MCV 86.2 81.3 - 96.4 fL [facility] ([place]) MCH 29.9 27.1 - 33.3 pg [facility] ([place]) MCHC 34.6 32.3 - 35.7 g/dL [facility] ([place]) RDW CV 12.2 11.1 - 14.9 % [facility] ([place]) RDW SD 38.5 35.7 - 48.1 fL [facility] ([place]) NRBC abs 0.00 0.00 - 0.01 K/cumm [facility] ([place]) Blood 06/08/2025 12:3 2 PM CDT 06/08/2025 12:57 PM CDT Baldemar Landry MD LAB BLOOD ORDERABLE S Final Result [facility] (MARLYS) 1 [facility] Department [place] [address] * Lipase (06/08/2025 12:32 PM CDT) Lipase 77 10 - 99 Units/L [facility] (MARLYS) Blood 06/08/2025 12:3 2 PM CDT 06/08/2025 12:57 PM CDT Baldemar Landry MD LAB BLOOD ORDERABLE S Final Result MARIOLA BRENNAN (MARLYS) 1 [facility] Department [place] [address] * (ABNORMAL) Comprehensive metabolic panel (06/08/2025 12:32 PM CDT) Sodium 141 135 - 145 mmol/L [facility] (MARLYS) Potassium, pl 4.2 3.3 - 4.9 mmol/L [facility] (MARLYS) Chloride 100 97 - 110 mmol/L [facility] (MARLYS) CO2 30 22 - 32 mmol/L [facility] (MARLYS) Anion gap 11 2 - 15 mmol/L [facility] (MARLYS) BUN 19 6 - 25 mg/dL [facility] (MARLYS) Creatinine 0.96 0.80 - 1.30 mg/dL [facility] (MARLYS) Glucose 136 70 - 199 mg/dL [facility] (MARLYS) Comment: Interpretive Data Fasting glucose >/= 126 mg/dl is diagnostic for diabetes. Fasting is defined as no caloric intake for at least 8 hours. Fasting glucose between 100 mg/dl to 125 mg/dl is diagnostic of prediabetes. In a patient with classic symptoms of hyperglycemia or hyperglycemic crisis, a random glucose >/= 200 mg/dl is diagnostic for diabetes. In the absence of unequivocal hyperglycemia, results should be confirmed by repeat testing. The classification and Diagnosis of Diabetes Diabetes Care 2021; 46: S19-S40. Current interpretive data was last revised 2022. Calcium 9.7 8.5 - 10.3 mg/dL [facility] (MARLYS) Bilirubin, total 0.7 0.1 - 1.2 mg/dL [facility] (MARLYS) Protein, pl 7.5 6.5 - 8.5 g/dL [facility] (MARLYS) Albumin 4.8 3.5 - 5.0 g/dL [facility] (MARLYS) Alk phos 57 40 - 130 Units/L [facility] (MARLYS) ALT 141(H) 7 - 55 Units/L [facility] (MARLYS) AST 56(H) 10 - 50 Units/L [facility] (MARLYS) Comment:HEMOLYZED; Blood 06/08/2025 12:3 2 PM CDT 06/08/2025 12:57 PM CDT Baldemar Landry MD LAB BLOOD ORDERABLE S Final Result MARIOLA [facility] (MARLYS) 1 [facility] Department [place] [address] * (ABNORMAL) Hemoglobin A1c (06/01/2025 12:01 PM CDT) Pathologist [facility] Hgb A1C 7.0(H) 4.0 - 5.6 % Comment:Testing performed by : [facility], [address] [place] [address]., [id number] Estimated Average Glucose 154 mg/dL MARIOLA Comment: The ADA recommends reporting an estimated Average Glucose (eAG) with all Hemoglobin A1c results using the equation derived from a study of 507 normal and diabetic adults. Minority populations were underrepresented and children were not included. (Diabetes Care 31:4756-4608, 2007). The eAG is not equivalent to a fasting glucose. Testing performed by: [facility], [address] [place] [address]., [id number] Blood 06/01/2025 12:0 1 PM CDT 06/01/2025 6:01 PM CDT Baldemar Landry MD LAB BLOOD ORDERABLE S Final Result Performing Organization Address City/[facility]/ZIP Co de Phone Number HUMZARAJESH [phone] [place] [address] Department [place] [address] * Albumin Creatinine Ratio, Urine (02/12/2025 11:52 AM CDT) Pathologist [facility] Albumin Ur <12.0 mg/L Comment: Interpretive Data No reference range established. Current interpretive data was last revised 2019. Creatinine Ur 87.4 mg/dL MARIOLA MORENO Comment: Interpretive Data No reference range established. Current interpretive data was last revised 2019. Albumin Creatinine Ratio, Ur <14 1 - 29 mg/g MARIOLA MORENO Urine 02/12/2025 11:5 2 AM CDT 02/12/2025 9:17 PM CDT us Baldemar Landry MD LAB URINE ORDERABLE S Final Result MARIOLA MORENO [address] Department [place] [address] * (ABNORMAL) Lipid panel (02/12/2025 11:52 AM CDT) Cholesterol 146 30 - 199 mg/dL Comment: Interpretive Data Ages < or = 19 years Acceptable: <170 mg/dL Borderline high: 170-199 mg/dL High: >or= 200 mg/dL Ages > or = 20 years Desirable: <200 mg/dL Borderline high: 200-239 mg/dL High: >or= 240 mg/dL Literature References: 1. Expert Panel on Integrated Guidelines for Cardiovascular Health and Risk Reduction in Children and Adolescents. Pediatrics 2011;128:S213 2. NCEP Expert Panel. Circulation 2004;110:227 Current Interpretive Data was last revised on 2018. Triglycerides 132 <=149 mg/dL MARIOLA MORENO Comment: Interpretive Data Ages < or = 9 years Acceptable: <75 mg/dL Borderline high: 75-99 mg/dL High: >or= 100 mg/dL Ages 10 to 20 years Acceptable: <90 mg/dL Borderline high: 90-129 mg/dL High: >or= 130 mg/dL Ages > or = 20 years Desirable: <150 mg/dL Borderline high: 150-199 mg/dL High: 200-499 mg/dL Very high: >or= 499 mg/dL Literature References: 1. Expert Panel on Integrated Guidelines for Cardiovascular Health and Risk Reduction in Children and Adolescents. Pediatrics 2011;128:S213 2. NCEP Expert Panel. Circulation 2004;110:227 Current Interpretive Data was last revised on 2018. HDL 23(L) >=40 mg/dL MARIOLA MORENO Comment: Interpretive Data Ages < or = 19 years Acceptable: >45 mg/dL Borderline low: 40-45 mg/dL Low: <40 mg/dL Ages > or = 20 years Desirable: >or= 60 mg/dL Low: <40 mg/dL Literature References: 1. Expert Panel on Integrated Guidelines for Cardiovascular Health and Risk Reduction in Children and Adolescents. Pediatrics 2011;128:S213 2. NCEP Expert Panel. Circulation 2004;110:227 Current Interpretive Data was last revised on 2018. LDL, calculated 99 <=129 mg/dL MARIOLA MORENO Comment: Interpretive Data Ages < or = 19 years Acceptable: <110 mg/dL Borderline high: 110-129 mg/dL High: >or= 130 mg/dL Ages > or = 20 years Optimal: <100 mg/dL Near optimal: 100-129 mg/dL Borderline high: 130-159 mg/dL High: >160 mg/dL Calculated using the Musa LDL-C estimating equation. This equation was implemented on 2024. Prior to this date LDL-C was estimated using the Friedewald equation. Literature References: 1. Expert Panel on Integrated Guidelines for Cardiovascular Health and Risk Reduction in Children and Adolescents. Pediatrics 2011;128:S213 2. NCEP Expert Panel. Circulation 2004;110:227 3. Musa Pandey et al. CHRISTY Cardiol. 2019March 25;5(5):540-548. doi: [email or web address] Current Interpretive Data was last revised on 2024. Non-HDL Cholesterol 123 mg/dL MARIOLA MORENO Comment: Interpretive Data Ages < or = 19 years Acceptable: <120 mg/dL Borderline high: 120-144 mg/dL High: >145 mg/dL Ages > or = 20 years When triglycerides are >200 mg/dL, Non-HDL cholesterol is a secondary target of therapy with treatment goals that are 30 mg/dL greater than the LDL cholesterol target. Literature References: 1. Expert Panel on Integrated Guidelines for Cardiovascular Health and Risk Reduction in Children and Adolescents. Pediatrics 2011;128:S213 2. NCEP Expert Panel. Circulation 2004;110:227 Current Interpretive Data was last revised on 2018. Chol/HDL ratio 6 MARIOLA MORENO Blood 02/12/2025 11:5 2 AM CDT 02/12/2025 9:17 PM CDT us Baldemar Landry MD LAB BLOOD ORDERABLE S Final Result MARIOLA MORENO [address] Department [place] [address] * Diabetic Eye Exam (08/08/2020) us Historical Provider HEALTH MAINTENANCE Edited Result - Final from Last 3 Months or Most Recently Relevant to Health Maintenance Insurance [employer] MEDICARE ADVANTAGE [facility] MEDIC[facility] Address[facility] [address] [address] [place] [address] [facility] [employer] [facility] MDCR HMO REF [facility] MEDICARE Address[facility] [address] [address] [place] [address] MEDICARE [employer] MEDICARE ADVANTAGE [facility] MEDIC[facility] Address: [address] [address] [place] [address] [employer] Advance Directives For more information, please contact: [phone] Documents on File Type Date Recorded Patient 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
[2025-07-22] MEDS: SILVER SULFADIAZINE 1% CR 50 GM JAR (*BKC) 1 APPLIC TOPICAL (18:10)
--- NOTE | 2025-07-22 18:21 | ED.BURNSMOKE ---
HPI - Burn/Smoke Inhalation General Stated complaint: burn on right hand Time Seen by Provider: 07/22/25 18:00 Source: patient Mode of arrival: ambulatory Limitations: no limitations History of Present Illness HPI Narrative: Eugene is a 25-year-old male patient presenting to the clinic today with complaints hernandez to his 2nd 3rd and 4th finger of his right hand. He reports he was cooking on the stove in accidentally burned thumb. Has blistering to the distal 2nd, 3rd, and 4th fingers. States this occurred approximately 1 hour ago. States the area still burning. Has not taken anything to treat his symptoms. Related Data Home Medications ?Medication ?Instructions ?Recorded ?Confirmed ?Last Taken ?Type divalproex 250 mg tablet,delayed 500 mg PO Q12H 11/02/19 01/05/25 Unknown History release omeprazole 20 mg capsule,delayed 20 mg PO DAILY 11/02/19 01/05/25 Unknown History release trazodone 100 mg tablet 200 mg PO HS 11/02/19 01/05/25 Unknown History aripiprazole 30 mg tablet 30 mg PO DAILY 03/29/23 01/05/25 Unknown History atorvastatin 40 mg tablet 40 mg PO DAILY 03/29/23 01/05/25 Unknown History clonidine HCl 0.1 mg tablet 1 mg PO TID 03/29/23 01/05/25 Unknown History empagliflozin 10 mg tablet 10 mg PO DAILY 03/29/23 01/05/25 Unknown History (Jardiance) gabapentin 300 mg capsule 300 mg PO TID 03/29/23 01/05/25 Unknown History hydroxyzine HCl 25 mg tablet 25 mg PO TID PRN Anxiety 03/29/23 01/05/25 Unknown History levothyroxine 25 mcg tablet 25 mcg PO DAILY 03/29/23 01/05/25 Unknown History metformin 1,000 mg tablet 1,000 mg PO BID 03/29/23 01/05/25 Unknown History buspirone 10 mg tablet 20 mg PO TID 07/21/24 01/05/25 Unknown History Allergies Allergy/AdvReac Type Severity Reaction Status Date / Time No Known Allergies Allergy Verified 07/22/25 18:08 Review of Systems Review of Systems: Pertinent positives per HPI. Patient denies any fever, chills, rash, headache, visual changes, dizziness, cough, runny nose, sore throat, shortness of breath, chest pain, palpitations, nausea, vomiting, diarrhea, constipation, abdominal pain, or any urinary issues. [facility] Past Medical History Medical History Anxiety Depression Diabetes Surgical History Surgical History No pertinent past surgical history Family History Family History Mother Family history non-contributory Social History Social History Smoking status: Never smoker Substance use: never Living arrangements: with family Gender identity (if verbalized by the patient): Male Spiritual care concerns: No Comments At the time of my signature, I reviewed and agree with the nursing past medical, surgical, social, and family history. There is no relevant family history pertinent to the patient complaint. Exam Narrative: General: Well-developed, morbidly obese, in no apparent distress Head: Normocephalic, atraumatic. Cardio: Regular rate and rhythm, s1 and s2 normal, no murmur appreciated. Resp: Clear to auscultation bilaterally, no rhonchi, rales, wheezing or rubs. Integumentary: [place], warm, and dry, second-degree burn with blistering to the distal right volar aspect of the 2nd, 3rd, and 4th fingers Course Course Emergency Course: Portions of this record may have been created with voice recognition software. Level of Care: Express Care Visit Vital Signs Vital signs: Vital signs reviewed MDM - Burn/Smoke Inhalation MDM Narrative Medical decision making narrative: At the time of visit patient is resting comfortably on the exam table. Patient appears to be nontoxic. Complaints hernandez to his 2nd 3rd and 4th finger of his right hand. He reports he was cooking on the stove in accidentally burned thumb. Has blistering to the distal 2nd, 3rd, and 4th fingers. States this occurred approximately 1 hour ago. States the area still burning. Has not taken anything to treat his symptoms. Patient reporting that his fingers were still burning so recommend putting fingers under cold water and running them until pain improves. Silvadene dressing was ordered to be placed. Tetanus was updated last year Plan: Patient has second-degree burn to the 2nd 3rd 4th volar distal fingers. Silvadene dressing was placed. Tetanus is up-to-date. Supportive measures were discussed with the patient and they voiced understanding discharge instructions and agrees to treatment plan. Return precautions reviewed Differential Diagnosis Differential diagnosis: Likely sunburn and other (Second-degree burn, third-degree burn) Discharge Plan Discharge Clinical Impression: Burn of multiple fingers of right hand excluding thumb Patient Disposition: Home Condition: Stable Instructions: Antibiotic Form, Second-Degree Burn (ED) Additional Instructions: Tetanus is up to date Keep wound clean and dry Wash wound daily with soap and water pat dry Apply Silvadene dressing twice daily x7 days May take Tylenol/Motrin as needed for pain Watch for signs and symptoms of infection- redness, streaking, swelling, purulent discharge, or increase in pain. Follow-up with your PCP in 2-3 days for wound check Patient Language: Bulgarian Prescriptions: New silver sulfadiazine [Silvadene] 1 % cream 1 applic topical BID 7 Days Qty: 50 0RF Rx Instructions: apply a 1.5 mm thickness No Action buspirone 10 mg tablet 20 mg PO TID divalproex 250 mg Tablet,Delayed Release (Dr/Ec) 500 mg PO Q12H trazodone 100 mg Tablet 200 mg PO HS omeprazole 20 mg Capsule,Delayed Release(Dr/Ec) 20 mg PO DAILY atorvastatin 40 mg tablet 40 mg PO DAILY clonidine HCl 0.1 mg tablet 1 mg PO TID levothyroxine 25 mcg tablet 25 mcg PO DAILY gabapentin 300 mg capsule 300 mg PO TID hydroxyzine HCl 25 mg tablet 25 mg PO TID PRN (Reason: Anxiety) aripiprazole 30 mg tablet 30 mg PO DAILY Jardiance 10 mg tablet 10 mg PO DAILY metformin 1,000 mg tablet 1,000 mg PO BID Follow-up/Referrals: PHYSICIAN NOT ON STAFF,NONSTAFF [Primary Care Provider] Time of Disposition: 18:22 Quality NIHSS Nursing Documentation ED NIHSS nursing documentation: reviewed/agree
== END 2025-07-22 18:30 | disposition home or self-care (01) ==
PROVIDERS: Emergency Provider Nurse Practitioner Family
DX: T23.231A Burn of second degree of multiple right fingers (nail), not including thumb, initial encounter (principal); X08.8XXA Exposure to other specified smoke, fire and flames, initial encounter; Y93.G3 Activity, cooking and baking; E11.9 Type 2 diabetes mellitus without complications; Z79.84 Long term (current) use of oral hypoglycemic drugs; F41.9 Anxiety disorder, unspecified; F32.A Depression, unspecified
CPT/HCPCS: 16020; 99213; A9270; G0463